=== PATIENT | female | born 1955 | race Caucasian/White ===

== ENCOUNTER 2020-04-22 02:04 | Outpatient (CLI) | payer MEDICARE, MEDICAID, SELFPAY ==
[2020-04-22 12:09] LABS: Abs Immature Grans 0.02 10^3/uL (0.0-0.06); Absolute Basophil Count 0.05 10^3/uL (0.0-0.2); Absolute Eosinophil Count 0.09 10^3/uL (0.0-0.7); Absolute Lymphocyte Count 2.16 10^3/uL (1.2-3.4); Absolute Monocyte Count 0.56 10^3/uL (0.1-0.8); Absolute Neutrophil Count 4.38 10^3/uL (1.2-6.7); Basophils % 0.7; Eosinophils % 1.2; HCT 41.3 % (36.0-46.0); HGB 13.6 g/dL (11.2-15.7); Immature Grans % 0.3; Lymphocytes % 29.8; MCH 26.4 pg (27.0-33.0); MCHC 32.9 % (32.0-36.0); MCV 80.2 fL (80-95); MPV 9.1 fL (8.0-11.0); Monocytes % 7.7; Neutrophils % 60.3; Nucleated RBC 0 %; Platelet Count 260 10^3/uL (130-400); RBC 5.15 10^6/uL (3.93-5.22); RDW 13.7 % (11.7-14.6); RDW-SD 39.3 fL; WBC 7.26 10^3/uL (4.4-10.8)
[2020-04-22 12:23] LABS: ALT 25 U/L (14-59); AST 14 U/L (15-37); Albumin 3.8 g/dL (3.4-5.0); Alkaline Phosphatase 103 U/L (46-116); Anion Gap 11.9 mmol/L (3-11); BUN 11 mg/dL (7-18); Bilirubin, Total 0.4 mg/dL (0.2-1.0); CO2 25.1 mmol/L (21.0-32.0); CREATININE 0.82 mg/dL (0.55-1.02); Chloride 103 mmol/L (98-107); Glucose 113 mg/dL (74-106); Potassium 3.1 mmol/L (3.5-5.1); Sodium 140 mmol/L (136-145); Total Protein 7.7 g/dL (6.4-8.2)
== END 2020-04-22 02:24 ==
PROVIDERS: Visit Provider Internal Medicine
DX: C51.9 Malignant neoplasm of vulva, unspecified (principal)
CPT/HCPCS: 36415; 80053; 83735; 85025

== ENCOUNTER 2020-04-30 07:35 | Outpatient (RCR) | payer MEDICARE, MEDICAID, SELFPAY ==
[2020-04-30 10:03] LABS: Abs Immature Grans 0.04 10^3/uL (0.0-0.06); Absolute Basophil Count 0.05 10^3/uL (0.0-0.2); Absolute Eosinophil Count 0.04 10^3/uL (0.0-0.7); Absolute Lymphocyte Count 1.03 10^3/uL (1.2-3.4); Absolute Neutrophil Count 5.15 10^3/uL (1.2-6.7); Basophils % 0.7; Eosinophils % 0.6; HCT 44.1 % (36.0-46.0); HGB 14.7 g/dL (11.2-15.7); Immature Grans % 0.6; Lymphocytes % 15.4; MCH 26.6 pg (27.0-33.0); MCHC 33.3 % (32.0-36.0); MCV 79.7 fL (80-95); Neutrophils % 76.7; Nucleated RBC 0 %; RBC 5.53 10^6/uL (3.93-5.22); RDW 13.8 % (11.7-14.6); RDW-SD 40.3 fL
[2020-04-30] MEDS: Normal Saline Flush 10 ML SYR IVP (10:05)
[2020-04-30 10:19] LABS: WBC 6.71 10^3/uL (4.4-10.8)
[2020-04-30 10:48] LABS: ALT 33 U/L (14-59); AST 17 U/L (15-37); Albumin 3.9 g/dL (3.4-5.0); Alkaline Phosphatase 115 U/L (46-116); Anion Gap 8.2 mmol/L (3-11); BUN 17 mg/dL (7-18); Bilirubin, Total 0.3 mg/dL (0.2-1.0); CO2 22.8 mmol/L (21.0-32.0); CREATININE 0.73 mg/dL (0.55-1.02); Calcium 9.5 mg/dL (8.5-10.1); Chloride 104 mmol/L (98-107); Glucose 116 mg/dL (74-106); Potassium 4.2 mmol/L (3.5-5.1); Sodium 135 mmol/L (136-145); Total Protein 7.9 g/dL (6.4-8.2)
== END 2020-05-06 23:59 | disposition home or self-care (01) ==
LOC: INF 07:35
PROVIDERS: Visit Provider Internal Medicine
DX: C51.9 Malignant neoplasm of vulva, unspecified (principal)
CPT/HCPCS: 36415; 80053; 83735; 85025

== ENCOUNTER 2020-05-07 08:58 | Outpatient (CLI) | payer MEDICARE, MEDICAID, SELFPAY ==
[2020-05-07 09:34] LABS: Abs Immature Grans 0.02 10^3/uL (0.0-0.06); Absolute Basophil Count 0.02 10^3/uL (0.0-0.2); Absolute Eosinophil Count 0.06 10^3/uL (0.0-0.7); Absolute Lymphocyte Count 0.85 10^3/uL (1.2-3.4); Absolute Monocyte Count 0.38 10^3/uL (0.1-0.8); Absolute Neutrophil Count 5.33 10^3/uL (1.2-6.7); Basophils % 0.3; Eosinophils % 0.9; HCT 41.1 % (36.0-46.0); Immature Grans % 0.3; Lymphocytes % 12.8; MCH 26.8 pg (27.0-33.0); MCHC 34.1 % (32.0-36.0); MCV 78.6 fL (80-95); MPV 8.7 fL (8.0-11.0); Monocytes % 5.7; Nucleated RBC 0 %; Platelet Count 194 10^3/uL (130-400); RBC 5.23 10^6/uL (3.93-5.22); RDW 14.1 % (11.7-14.6); WBC 6.66 10^3/uL (4.4-10.8)
[2020-05-07 09:45] LABS: ALT 27 U/L (14-59); AST 13 U/L (15-37); Albumin 3.6 g/dL (3.4-5.0); Alkaline Phosphatase 118 U/L (46-116); Anion Gap 12.7 mmol/L (3-11); BUN 15 mg/dL (7-18); Bilirubin, Total 0.2 mg/dL (0.2-1.0); CO2 23.3 mmol/L (21.0-32.0); CREATININE 0.76 mg/dL (0.55-1.02); Calcium 9.1 mg/dL (8.5-10.1); Chloride 100 mmol/L (98-107); Glucose 131 mg/dL (74-106); Magnesium 1.5 mg/dL (1.8-2.4); Potassium 3.7 mmol/L (3.5-5.1); Sodium 136 mmol/L (136-145); Total Protein 7.5 g/dL (6.4-8.2)
== END 2020-05-07 09:18 ==
PROVIDERS: Visit Provider Internal Medicine
DX: C51.9 Malignant neoplasm of vulva, unspecified (principal)
CPT/HCPCS: 36415; 80053; 83735; 85025

== ENCOUNTER 2020-05-14 08:39 | Outpatient (CLI) | payer MEDICARE, MEDICAID, SELFPAY ==
[2020-05-14 09:05] LABS: Abs Immature Grans 0.02 10^3/uL (0.0-0.06); Absolute Basophil Count 0.02 10^3/uL (0.0-0.2); Absolute Eosinophil Count 0.06 10^3/uL (0.0-0.7); Absolute Lymphocyte Count 0.64 10^3/uL (1.2-3.4); Absolute Neutrophil Count 2.59 10^3/uL (1.2-6.7); Basophils % 0.6; Eosinophils % 1.7; HCT 37.2 % (36.0-46.0); HGB 12.5 g/dL (11.2-15.7); Immature Grans % 0.6; Lymphocytes % 18.1; MCH 26.8 pg (27.0-33.0); MCHC 33.6 % (32.0-36.0); MCV 79.8 fL (80-95); MPV 8.6 fL (8.0-11.0); Monocytes % 5.7; Neutrophils % 73.3; Nucleated RBC 0 %; Platelet Count 151 10^3/uL (130-400); RBC 4.66 10^6/uL (3.93-5.22); RDW 14.8 % (11.7-14.6); RDW-SD 40.2 fL; WBC 3.53 10^3/uL (4.4-10.8)
[2020-05-14 09:16] LABS: ALT 28 U/L (14-59); AST 14 U/L (15-37); Albumin 3.5 g/dL (3.4-5.0); Alkaline Phosphatase 113 U/L (46-116); Anion Gap 9.8 mmol/L (3-11); BUN 12 mg/dL (7-18); Bilirubin, Total 0.3 mg/dL (0.2-1.0); CO2 24.2 mmol/L (21.0-32.0); CREATININE 0.85 mg/dL (0.55-1.02); Calcium 8.8 mg/dL (8.5-10.1); Chloride 102 mmol/L (98-107); Glucose 150 mg/dL (74-106); Magnesium 1.5 mg/dL (1.8-2.4); Potassium 3.2 mmol/L (3.5-5.1); Sodium 136 mmol/L (136-145)
== END 2020-05-14 08:59 ==
PROVIDERS: Visit Provider Internal Medicine
DX: C51.9 Malignant neoplasm of vulva, unspecified (principal)
CPT/HCPCS: 36415; 80053; 83735; 85025

== ENCOUNTER 2020-05-21 03:34 | Outpatient (CLI) | payer MEDICARE, MEDICAID, SELFPAY ==
[2020-05-21 08:43] LABS: Abs Immature Grans 0.01 10^3/uL (0.0-0.06); Absolute Basophil Count 0.02 10^3/uL (0.0-0.2); Absolute Eosinophil Count 0.03 10^3/uL (0.0-0.7); Absolute Lymphocyte Count 0.47 10^3/uL (1.2-3.4); Absolute Monocyte Count 0.22 10^3/uL (0.1-0.8); Absolute Neutrophil Count 2.51 10^3/uL (1.2-6.7); Basophils % 0.6; Eosinophils % 0.9; HCT 36.7 % (36.0-46.0); HGB 12.6 g/dL (11.2-15.7); Immature Grans % 0.3; Lymphocytes % 14.4; MCH 27.2 pg (27.0-33.0); MCHC 34.3 % (32.0-36.0); MCV 79.3 fL (80-95); MPV 8.7 fL (8.0-11.0); Monocytes % 6.7; Neutrophils % 77.1; Nucleated RBC 0 %; Platelet Count 150 10^3/uL (130-400); RBC 4.63 10^6/uL (3.93-5.22); RDW 15.9 % (11.7-14.6); RDW-SD 40.6 fL; WBC 3.26 10^3/uL (4.4-10.8)
[2020-05-21 09:00] LABS: ALT 25 U/L (14-59); AST 12 U/L (15-37); Albumin 3.7 g/dL (3.4-5.0); Alkaline Phosphatase 120 U/L (46-116); Anion Gap 12.1 mmol/L (3-11); BUN 10 mg/dL (7-18); Bilirubin, Total 0.4 mg/dL (0.2-1.0); CO2 22.9 mmol/L (21.0-32.0); CREATININE 0.85 mg/dL (0.55-1.02); Calcium 8.9 mg/dL (8.5-10.1); Chloride 97 mmol/L (98-107); Glucose 157 mg/dL (74-106); Magnesium 1.6 mg/dL (1.8-2.4); Sodium 132 mmol/L (136-145); Total Protein 7.4 g/dL (6.4-8.2)
== END 2020-05-21 03:54 ==
PROVIDERS: Visit Provider Internal Medicine
DX: C51.9 Malignant neoplasm of vulva, unspecified (principal)
CPT/HCPCS: 36415; 80053; 83735; 85025

== ENCOUNTER 2020-05-28 01:39 | Outpatient (CLI) | payer MEDICARE, MEDICAID, SELFPAY ==
[2020-05-28 08:49] LABS: Abs Immature Grans 0.01 10^3/uL (0.0-0.06); Absolute Eosinophil Count 0.01 10^3/uL (0.0-0.7); Absolute Neutrophil Count 2.39 10^3/uL (1.2-6.7); Eosinophils % 0.3; HCT 33.3 % (36.0-46.0); HGB 11.3 g/dL (11.2-15.7); Immature Grans % 0.3; MCH 27.3 pg (27.0-33.0); MCHC 33.9 % (32.0-36.0); MCV 80.4 fL (80-95); MPV 9.6 fL (8.0-11.0); Neutrophils % 79.4; Nucleated RBC 0 %; Platelet Count 158 10^3/uL (130-400); RBC 4.14 10^6/uL (3.93-5.22); RDW 16.9 % (11.7-14.6); RDW-SD 43.6 fL; WBC 3.01 10^3/uL (4.4-10.8)
[2020-05-28 09:07] LABS: ALT 23 U/L (14-59); AST 14 U/L (15-37); Albumin 3.3 g/dL (3.4-5.0); Alkaline Phosphatase 116 U/L (46-116); Anion Gap 10.2 mmol/L (3-11); BUN 10 mg/dL (7-18); Bilirubin, Total 0.5 mg/dL (0.2-1.0); CO2 23.8 mmol/L (21.0-32.0); CREATININE 0.86 mg/dL (0.55-1.02); Calcium 8.9 mg/dL (8.5-10.1); Chloride 97 mmol/L (98-107); Glucose 150 mg/dL (74-106); Magnesium 1.7 mg/dL (1.8-2.4); Sodium 131 mmol/L (136-145); Total Protein 7.3 g/dL (6.4-8.2)
== END 2020-05-28 01:59 ==
PROVIDERS: Visit Provider Internal Medicine
DX: C51.9 Malignant neoplasm of vulva, unspecified (principal)
CPT/HCPCS: 36415; 80053; 83735; 85025

== ENCOUNTER 2020-06-03 12:44 | Outpatient (CLI) | payer MEDICARE, MEDICAID, SELFPAY ==
[2020-06-03 13:36] LABS: Abs Immature Grans 0.02 10^3/uL (0.0-0.06); Absolute Basophil Count 0.01 10^3/uL (0.0-0.2); Absolute Eosinophil Count 0.01 10^3/uL (0.0-0.7); Absolute Lymphocyte Count 0.23 10^3/uL (1.2-3.4); Absolute Monocyte Count 0.37 10^3/uL (0.1-0.8); Basophils % 0.4; Eosinophils % 0.4; HCT 26.8 % (36.0-46.0); HGB 9.3 g/dL (11.2-15.7); Immature Grans % 0.7; Lymphocytes % 8.1; MCH 27.3 pg (27.0-33.0); MCHC 34.7 % (32.0-36.0); MCV 78.6 fL (80-95); MPV 9.1 fL (8.0-11.0); Neutrophils % 77.4; Nucleated RBC 0 %; Platelet Count 137 10^3/uL (130-400); RBC 3.41 10^6/uL (3.93-5.22); RDW 17.6 % (11.7-14.6); WBC 2.84 10^3/uL (4.4-10.8)
[2020-06-03 13:56] LABS: ALT 18 U/L (14-59); AST 15 U/L (15-37); Albumin 2.9 g/dL (3.4-5.0); Alkaline Phosphatase 91 U/L (46-116); Anion Gap 11.3 mmol/L (3-11); BUN 9 mg/dL (7-18); Bilirubin, Total 0.6 mg/dL (0.2-1.0); CO2 22.7 mmol/L (21.0-32.0); CREATININE 0.79 mg/dL (0.55-1.02); Calcium 8.6 mg/dL (8.5-10.1); Chloride 90 mmol/L (98-107); Glucose 119 mg/dL (74-106); Magnesium 1.4 mg/dL (1.8-2.4)
[2020-06-03 14:01] LABS: Sodium 124 mmol/L (136-145)
== END 2020-06-03 13:04 ==
PROVIDERS: Visit Provider Internal Medicine
DX: C51.9 Malignant neoplasm of vulva, unspecified (principal)
CPT/HCPCS: 36415; 80053; 83735; 85025

== ENCOUNTER 2020-06-04 01:56 | Outpatient (RCR) | payer MEDICARE, MEDICAID, SELFPAY | END 2020-06-05 23:59 | disposition home or self-care (01) | LOC: INF 01:56 | PROVIDERS: Visit Provider Internal Medicine | DX: Z53.9 Procedure and treatment not carried out, unspecified reason (principal) ==

== ENCOUNTER 2020-06-04 02:43 | Outpatient (CLI) | payer MEDICARE, MEDICAID, SELFPAY ==
[2020-06-04 09:54] LABS: Sodium, Urine 30 mmol/L
[2020-06-04 09:58] LABS: Uric Acid 5.1 mg/dL (2.6-6.0)
[2020-06-04 16:21] LABS: Osmolality Serum 267 mOsm/kg (275-295)
[2020-06-04 17:33] LABS: Bilirubin Negative (Negative); Blood Trace-lysed (Negative); Clarity Clear (Clear); Glucose Negative (Negative); Ketones Negative (Negative); Leukocyte Esterase Small (Negative); Nitrite Negative (Negative); Urobilinogen 0.2 EU/dL (Up TO 0.2); pH 5.5 (5-8)
[2020-06-04 17:39] LABS: Bacteria Rare HPF (Negative); C & S Indicated? No; Casts Negative LPF (Negative); Crystals Negative HPF (Negative); Epithelial Cells Negative HPF (Negative); Mucus Negative (Negative); RBC 0-2 HPF (0-2)
== END 2020-06-04 03:03 ==
PROVIDERS: Nurse Practitioner Adult Health; Radiology Radiation Oncology; Visit Provider Internal Medicine
DX: R39.15 Urgency of urination (principal)
CPT/HCPCS: 36415; 81003; 81015; 83930; 84300; 84550

== ENCOUNTER 2020-06-06 04:29 | Outpatient (CLI) | payer MEDICARE, MEDICAID, SELFPAY ==
[2020-06-06 11:43] LABS: Abs Immature Grans 0.01 10^3/uL (0.0-0.06); Absolute Eosinophil Count 0.01 10^3/uL (0.0-0.7); Absolute Lymphocyte Count 0.16 10^3/uL (1.2-3.4); Absolute Monocyte Count 0.31 10^3/uL (0.1-0.8); Absolute Neutrophil Count 1.79 10^3/uL (1.2-6.7); Eosinophils % 0.4; HCT 23.8 % (36.0-46.0); HGB 8.2 g/dL (11.2-15.7); Immature Grans % 0.4; MCH 27.5 pg (27.0-33.0); MCHC 34.5 % (32.0-36.0); MCV 79.9 fL (80-95); MPV 9.3 fL (8.0-11.0); Monocytes % 13.6; Neutrophils % 78.6; Nucleated RBC 0 %; Platelet Count 148 10^3/uL (130-400); RBC 2.98 10^6/uL (3.93-5.22); RDW 18.2 % (11.7-14.6); RDW-SD 51.5 fL; WBC 2.28 10^3/uL (4.4-10.8)
[2020-06-06 12:00] LABS: ALT 19 U/L (14-59); AST 16 U/L (15-37); Albumin 2.6 g/dL (3.4-5.0); Alkaline Phosphatase 80 U/L (46-116); Anion Gap 9.1 mmol/L (3-11); BUN 8 mg/dL (7-18); Bilirubin, Total 0.5 mg/dL (0.2-1.0); CO2 25.9 mmol/L (21.0-32.0); CREATININE 0.83 mg/dL (0.55-1.02); Calcium 8.6 mg/dL (8.5-10.1); Chloride 95 mmol/L (98-107); Glucose 154 mg/dL (74-106); Magnesium 1.5 mg/dL (1.8-2.4); Potassium 3.3 mmol/L (3.5-5.1); Sodium 130 mmol/L (136-145); Total Protein 6.7 g/dL (6.4-8.2)
[2020-06-06 12:02] LABS: Anisocytosis 1+; Diff Comment RBC Morph Reviewed
== END 2020-06-06 04:49 ==
PROVIDERS: Visit Provider Internal Medicine
DX: C51.9 Malignant neoplasm of vulva, unspecified (principal)
CPT/HCPCS: 80053; 83735; 85025

== ENCOUNTER 2020-06-11 01:21 | Outpatient (CLI) | payer MEDICARE, MEDICAID, SELFPAY ==
[2020-06-11 12:30] LABS: Abs Immature Grans 0.04 10^3/uL (0.0-0.06); Absolute Basophil Count 0.01 10^3/uL (0.0-0.2); Absolute Eosinophil Count 0.01 10^3/uL (0.0-0.7); Absolute Lymphocyte Count 0.37 10^3/uL (1.2-3.4); Absolute Monocyte Count 0.41 10^3/uL (0.1-0.8); Basophils % 0.2; Eosinophils % 0.2; HCT 27.4 % (36.0-46.0); HGB 9.1 g/dL (11.2-15.7); Immature Grans % 0.9; MCH 27.4 pg (27.0-33.0); MCHC 33.2 % (32.0-36.0); MCV 82.5 fL (80-95); MPV 8.6 fL (8.0-11.0); Monocytes % 8.8; Neutrophils % 81.9; Nucleated RBC 0 %; Platelet Count 201 10^3/uL (130-400); RBC 3.32 10^6/uL (3.93-5.22); RDW-SD 55.9 fL; WBC 4.64 10^3/uL (4.4-10.8)
[2020-06-11 12:46] LABS: ALT 31 U/L (14-59); AST 22 U/L (15-37); Albumin 2.7 g/dL (3.4-5.0); Alkaline Phosphatase 89 U/L (46-116); Anion Gap 10.1 mmol/L (3-11); BUN 6 mg/dL (7-18); Bilirubin, Total 0.6 mg/dL (0.2-1.0); CO2 26.9 mmol/L (21.0-32.0); CREATININE 0.86 mg/dL (0.55-1.02); Calcium 8.9 mg/dL (8.5-10.1); Chloride 92 mmol/L (98-107); Glucose 123 mg/dL (74-106); Magnesium 1.7 mg/dL (1.8-2.4); Potassium 3.4 mmol/L (3.5-5.1); Sodium 129 mmol/L (136-145); Total Protein 7.4 g/dL (6.4-8.2)
[2020-06-11 12:54] LABS: Sodium, Urine 18 mmol/L
== END 2020-06-11 01:41 ==
PROVIDERS: Visit Provider Internal Medicine
DX: C51.9 Malignant neoplasm of vulva, unspecified (principal); E87.1 Hypo-osmolality and hyponatremia
CPT/HCPCS: 36415; 80053; 83735; 84300; 85025

== ENCOUNTER 2020-06-18 01:58 | Outpatient (CLI) | payer MEDICARE, MEDICAID, SELFPAY ==
[2020-06-18 09:20] LABS: Abs Immature Grans 0.14 10^3/uL (0.0-0.06); Absolute Basophil Count 0.02 10^3/uL (0.0-0.2); Absolute Eosinophil Count 0.02 10^3/uL (0.0-0.7); Absolute Lymphocyte Count 0.71 10^3/uL (1.2-3.4); Absolute Monocyte Count 0.45 10^3/uL (0.1-0.8); Absolute Neutrophil Count 3.76 10^3/uL (1.2-6.7); Basophils % 0.4; Eosinophils % 0.4; HGB 9.3 g/dL (11.2-15.7); Immature Grans % 2.7; Lymphocytes % 13.9; MCH 27.6 pg (27.0-33.0); MCHC 33.2 % (32.0-36.0); MCV 83.1 fL (80-95); MPV 9.6 fL (8.0-11.0); Monocytes % 8.8; Neutrophils % 73.8; Nucleated RBC 0 %; Platelet Count 227 10^3/uL (130-400); RBC 3.37 10^6/uL (3.93-5.22); RDW-SD 58.2 fL
[2020-06-18 09:35] LABS: ALT 25 U/L (14-59); AST 20 U/L (15-37); Albumin 2.8 g/dL (3.4-5.0); Alkaline Phosphatase 96 U/L (46-116); Anion Gap 10.4 mmol/L (3-11); BUN 6 mg/dL (7-18); Bilirubin, Total 0.6 mg/dL (0.2-1.0); CO2 25.6 mmol/L (21.0-32.0); CREATININE 0.91 mg/dL (0.55-1.02); Chloride 97 mmol/L (98-107); Glucose 128 mg/dL (74-106); Potassium 4.1 mmol/L (3.5-5.1); Sodium 133 mmol/L (136-145); Total Protein 7.4 g/dL (6.4-8.2)
[2020-06-18 09:50] LABS: Sodium, Urine 34 mmol/L
== END 2020-06-18 02:18 ==
PROVIDERS: Visit Provider Internal Medicine
DX: E87.1 Hypo-osmolality and hyponatremia (principal)
CPT/HCPCS: 36415; 80053; 83735; 84300; 85025

== ENCOUNTER 2020-07-01 18:25 | Outpatient (REF) | payer MEDICARE, MEDICAID, SELFPAY ==
[2020-07-01 18:47] LABS: Bilirubin Negative (Negative); Blood Negative (Negative); Clarity Clear (Clear); Glucose Negative (Negative); Ketones Negative (Negative); Leukocyte Esterase Trace (Negative); Nitrite Negative (Negative); pH 5.5 (5-8)
[2020-07-01 18:55] LABS: Bacteria Few HPF (Negative); C & S Indicated? Yes; Casts Negative LPF (Negative); Crystals Negative HPF (Negative); Epithelial Cells Few HPF (Negative); Mucus Negative (Negative); RBC 0-2 HPF (0-2)
== END 2020-07-01 18:45 ==
LOC: LBN 18:25
PROVIDERS: Visit Provider Radiology Radiation Oncology
DX: R30.0 Dysuria (principal)
CPT/HCPCS: 81003; 81015; 87086

== ENCOUNTER 2020-12-23 16:05 | Outpatient (REF) | payer MEDICARE, MEDICAID, SELFPAY ==
[2020-12-23 16:25] LABS: Bilirubin Negative (Negative); Blood Moderate (Negative); Clarity Clear (Clear); Glucose Negative (Negative); Ketones Negative (Negative); Leukocyte Esterase Trace (Negative); Nitrite Negative (Negative); Urobilinogen 0.2 EU/dL (Up TO 0.2); pH 5.5 (5-8)
[2020-12-23 16:43] LABS: Bacteria Moderate HPF (Negative); C & S Indicated? Yes; Casts Negative LPF (Negative); Crystals Negative HPF (Negative); Epithelial Cells Few HPF (Negative); Mucus Negative (Negative)
== END 2020-12-23 16:06 | disposition home or self-care (01) ==
LOC: LBN 16:05
PROVIDERS: Visit Provider Radiology Radiation Oncology
DX: R30.0 Dysuria (principal)
CPT/HCPCS: 81003; 81015; 87086

== ENCOUNTER 2020-12-30 04:26 | Outpatient (CLI) | payer MEDICARE, MEDICAID, SELFPAY ==
[2020-12-30 12:38] LABS: Abs Immature Grans 0.01 10^3/uL (0.0-0.06); Absolute Basophil Count 0.03 10^3/uL (0.0-0.2); Absolute Eosinophil Count 0.05 10^3/uL (0.0-0.7); Absolute Lymphocyte Count 0.92 10^3/uL (1.2-3.4); Absolute Monocyte Count 0.32 10^3/uL (0.1-0.8); Absolute Neutrophil Count 3.51 10^3/uL (1.2-6.7); Basophils % 0.6; HCT 36.1 % (36.0-46.0); HGB 11.7 g/dL (11.2-15.7); Immature Grans % 0.2; MCH 26.8 pg (27.0-33.0); MCHC 32.4 % (32.0-36.0); MCV 82.8 fL (80-95); MPV 8.5 fL (8.0-11.0); Monocytes % 6.6; Neutrophils % 72.6; Nucleated RBC 0 %; Platelet Count 240 10^3/uL (130-400); RBC 4.36 10^6/uL (3.93-5.22); RDW 15.5 % (11.7-14.6); RDW-SD 47.4 fL; WBC 4.84 10^3/uL (4.4-10.8)
[2020-12-30 13:56] LABS: ALT 21 U/L (14-59); AST 13 U/L (15-37); Albumin 3.5 g/dL (3.4-5.0); Alkaline Phosphatase 130 U/L (46-116); Anion Gap 8.2 mmol/L (3-11); BUN 12 mg/dL (7-18); Bilirubin, Total 0.2 mg/dL (0.2-1.0); CO2 29.8 mmol/L (21.0-32.0); CREATININE 0.7 mg/dL (0.55-1.02); Calcium 8.6 mg/dL (8.5-10.1); Chloride 106 mmol/L (98-107); Glucose 76 mg/dL (74-106); Potassium 3.8 mmol/L (3.5-5.1); Sodium 144 mmol/L (136-145)
== END 2020-12-30 04:27 | disposition home or self-care (01) ==
PROVIDERS: PCP Physician Assistant Medical; Visit Provider Internal Medicine
DX: C51.9 Malignant neoplasm of vulva, unspecified (principal)
CPT/HCPCS: 36415; 80053; 83735; 85025

== ENCOUNTER 2021-05-20 02:14 | Outpatient (CLI) | payer MEDICARE, MEDICAID, SELFPAY ==
--- NOTE | 2021-05-20 | DI.CT_ITS ---
Exam(s) CT PELVIC W EXAM: CT PELVIC W CLINICAL HISTORY: S/P CHEMO,RXT FOR VULVAR CA,PERSISTENT VULVOVAGINAL PAIN,Z92.3. TECHNIQUE: Imaging Protocol: Axial computed tomography images with coronal and sagittal reformatted images were created and reviewed. CONTRAST MATERIAL: Intravenous: Omnipaque 350 Contrast volume:100 cc Oral: yes / FINDINGS: Stable dilatation of left ureter. Bladder: Mild distention, no focal mass. Mild vulvar and vaginal hyperemia without evidence of focal mass or abscess. Some stranding in the fat of the mons pubis without focal abnormality, not changed from the previous exam. Uterus and ova walter unremarkable. Bowel: No obstruction or bowel wall thickening. Sigmoid diverticulosis. No evidence of diverticulit is. Peritoneal cavity: No ascites, collection or mesenteric inflammatory response. No bony abnormality. No adenopathy IMPRESSION: Mild hyperemia in the vulva and surrounding subcutaneous fat. No visible mass or abscess. Stable di latation of the left ureter. RADIATION DOSE DELIVERED: 578.28mGy.cm Total DLP DATA REPOSITORY: All CT scans at this facility are submitted to the National Radiology Data Registry (NRDR) Dose Index Registry (DIR) with the [employer] (ACR). RADIATION OPTIMIZATION: All CT scans at this facility use at least one of these dose optimization te chniques: automated exposure control; mA and/or kV adjustment per patient size (includes targeted exa ms where dose is matched to clinical indication); or iterative reconstruction.
[2021-05-20 08:31] LABS: CREATININE 0.9 mg/dL (0.55-1.02)
[2021-05-20] MEDS: Normal Saline Flush 10 ML SYR IVP (09:50)
[2021-05-20] MEDS: Omnipaque 350 MG/ML 100 ML BTL IJ (09:50)
== END 2021-05-20 02:34 ==
PROVIDERS: PCP Physician Assistant Medical; Visit Provider Radiology Radiation Oncology
DX: Z92.3 Personal history of irradiation (principal); R68.89 Other general symptoms and signs
CPT/HCPCS: 72193; 82565; J3490

== ENCOUNTER 2021-05-20 19:05 | Outpatient (REF) | payer MEDICARE, MEDICAID, SELFPAY ==
[2021-05-20 21:48] LABS: Bilirubin Negative (Negative); Blood Trace-lysed (Negative); Clarity Clear (Clear); Glucose Negative (Negative); Ketones Negative (Negative); Leukocyte Esterase Trace (Negative); Nitrite Negative (Negative); pH 6.5 (5-8)
[2021-05-20 22:02] LABS: Bacteria Few HPF (Negative); C & S Indicated? Yes; Casts Negative LPF (Negative); Crystals Negative HPF (Negative); Epithelial Cells Rare HPF (Negative); Mucus Negative (Negative)
== END 2021-05-20 19:06 | disposition home or self-care (01) ==
LOC: LBN 19:05
PROVIDERS: PCP Physician Assistant Medical; Visit Provider Radiology Radiation Oncology
DX: R30.0 Dysuria (principal)
CPT/HCPCS: 81003; 81015; 87086

== ENCOUNTER 2021-10-20 00:34 | Outpatient (CLI) | payer MEDICARE, MEDICAID, SELFPAY ==
--- NOTE | 2021-10-20 | DI.MRI_ITS ---
Exam(s) MR BRAIN WO/W EXAM: MR BRAIN WO/W CLINICAL HISTORY: VULVAR CA,C51.9,S/P CHEMO TECHNIQUE: Multiplanar multisequence MRI of the brain was performed. Both noninfused and contrast i nfused sequences were performed. IV Contrast injected was 13 cc Dotarem. COMPARISON: CT CT PELVIC W from 05/20/2021 FINDINGS: CEREBRAL PARENCHYMA: No evidence of intracranial hemorrhage, mass effect nor shift of midline structu re. No extraaxial fluid collections. Ventricles are not enlarged nor shifted. There is no significant focal signal abnormality in the cerebellar hemispheres nor within the roc, m idbrain, and thalami. There are few small nonspecific foci of white matter signal abnormality, not associated with hemorrha ge, surrounding edema, nor enhancement. Also not associated with the restricted diffusion on DWI seq uence to suggest recent ischemic events. Also no evidence microhemorrhages on susceptibility weighte d imaging. There are no ring enhancing lesions in the brain. There is no abnormal meningeal enhancement. No obvious skull lesions. PITUITARY GLAND: No mass nor parasellar abnormality. No obvious abnormality in the cavernous sinuses. FLOW VOIDS: The expected flow void are noted. No evidence of obvious aneurysm nor obvious vascular ma lformation. PARANASAL SINUSES: The visualized paranasal sinuses appear unremarkable. ORBITS: No obvious abnormal findings. IMPRESSION: 1. No evidence of intracranial metastatic disease on this brain MRI study 2. No abnormal enhancing intracranial finding. 3. There are few nonspecific foci of white matter signal abnormality which do not have the appearanc e of metastatic disease nor acute lacunar infarcts. DATA REPOSITORY:
[2021-10-20 09:26] LABS: CREATININE 0.9 mg/dL (0.55-1.02)
[2021-10-20] MEDS: Normal Saline Flush 10 ML SYR IVP (09:32)
[2021-10-20] MEDS: Gadoterate meglumine 20 ML VIAL 13 ML IVP (09:32)
== END 2021-10-20 00:54 ==
PROVIDERS: PCP Physician Assistant Medical; Visit Provider Radiology Radiation Oncology
DX: Z01.812 Encounter for preprocedural laboratory examination (principal); C51.9 Malignant neoplasm of vulva, unspecified; Z92.21 Personal history of antineoplastic chemotherapy; Z12.89 Encounter for screening for malignant neoplasm of other sites; R90.82 White matter disease, unspecified; R42 Dizziness and giddiness
CPT/HCPCS: 70553; 82565

== ENCOUNTER → 2022-01-09 01:43 | Outpatient (CLI) | payer MEDICARE, MEDICAID, SELFPAY ==
--- NOTE | 2022-01-09 | DI.RAD_ITS ---
Exam(s) XR CHEST 2V PA LATERAL EXAM: XR CHEST 2V PA LATERAL CLINICAL HISTORY: HEAVY FEELING IN CHEST, S/P RADIOTHERAPY FOR VULVAR CA, Z92.3. TECHNIQUE: 2D digital imaging was performed. COMPARISON: No exams were available for comparison FINDINGS: 2 views: Heart size is normal. The mediastinum is not widened. Lungs are clear. No infiltrates nor pleural effusions. Evidence of previous rotator cuff repair surgery in the right shoulder noted IMPRESSION: No acute pulmonary findings. DATA REPOSITORY: RADIATION DOSE DELIVERED:
--- NOTE | 2022-01-09 11:00 | DI.CT_ITS ---
Exam(s) CT ABDOMEN PELVIS WO EXAM: CT ABDOMEN PELVIS WO CLINICAL HISTORY: INCREASING FLUID RETENTION, H/O CHEMO AND RADIOTHERAPY FOR VULVAR CA, Z92.3. TECHNIQUE: Imaging Protocol: Axial computed tomography images with coronal and sagittal reformatted images were created and reviewed CONTRAST MATERIAL: Intravenous: none Oral: Yes COMPARISON: CT CT PELVIC W from 05/20/2021 FINDINGS: VISUALIZED LUNG BASES: No nodules nor pleural effusions evident. ABDOMEN: There is no ascites. LIVER: There is a single 4 millimeter calcification in the right hepatic lobe. There are no discrete ominous focal hepatic lesions evident on this noninfused study. GALLBLADDER/BILIARY: No obvious gallbladder pathology. CBD is not dilated. PANCREAS: No evidence of pancreatic mass nor dilatation of the pancreatic duct. SPLEEN: Spleen is not enlarged. No obvious intrasplenic lesions. ADRENALS: There are no significant adrenal masses. KIDNEYS:There is moderate unilateral left hydronephrosis and hydroureter. The entire left ureter is dilated to diameter 9 millimeters, down to and including the left ureterovesical junction. There is no obvious radiopaque calculus in the lower ureter.. There is some uniform thickening of the bladder wall peer. ABDOMINAL AORTA: Mild fusiform dilatation maximum diameter 2.6 cm. Common iliac arteries are calcifi ed not enlarged. LYMPH NODES: There is no retroperitoneal nor paraaortic adenopathy. ABDOMINAL WALL: No evidence of anterior abdominal hernia. However, there is mild symmetrical subcuta neous streaking over both sides of the anterior abdominal wall in the supraumbilical region. There a lso appears to be some skin thickening. Possible cellulitis. Possibly related to prior radiation th erapy. GI: There is no evidence of bowel obstruction, free air, nor abscess. PELVIS: LYMPH NODES: There is no intrapelvic nor inguinal adenopathy. GI: No evidence of appendicitis.Sigmoid diverticulosis. No obvious acute diverticulitis. URINARY BLADDER: Diffusely thickened somewhat shaggy urinary bladder wall. Dilated left ureter as de scribed above. REPRODUCTIVE: Uterus and adnexal regions unremarkable. No free fluid in the pelvis OSSEOUS: No significant osseous lesions. Mild degenerative anterolisthesis L4 upon L5 due to facet arthropathy. No disc space narrowing evide nt at this level. IMPRESSION: 1. There is significant left-sided hydronephrosis and hydroureter. The entire length of the left ure ter is dilated down to the bladder wall. The bladder wall is uniformly thickened. 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 Urology consultation recommended. Similar findin gs are not seen in the opposite-right side. 2. Uterus and ovaries appear unremarkable 3. The amount of subcutaneous streaking in the region of the vulva has somewhat decreased but there i s increasing symmetrical streaking in the deep bilateral subcutaneous fat over both sides of the lowe r abdomen-pelvis. There is no drainable fluid collection at these levels. 4. There is no ascites. No bowel obstruction. No mesenteric masses RADIATION DOSE DELIVERED: 831.49mGy.cm Total DLP DATA REPOSITORY: All CT scans at this facility are submitted to the National Radiology Data Registry (NRDR) Dose Index Registry (DIR) with the [employer] (ACR). RADIATION OPTIMIZATION: All CT scans at this facility use at least one of these dose optimization te chniques: automated exposure control; mA and/or kV adjustment per patient size (includes targeted exa ms where dose is matched to clinical indication); or iterative reconstruction.
== END ==
PROVIDERS: PCP Physician Assistant Medical; Visit Provider Radiology Radiation Oncology
DX: N13.30 Unspecified hydronephrosis (principal); R93.89 Abnormal findings on diagnostic imaging of other specified body structures; Z92.3 Personal history of irradiation; Z85.44 Personal history of malignant neoplasm of other female genital organs; R60.0 Localized edema; R91.8 Other nonspecific abnormal finding of lung field
CPT/HCPCS: 71046; 74176; 82565

== ENCOUNTER 2022-11-16 02:06 | Outpatient (CLI) | payer MEDICARE, MEDICAID, SELFPAY ==
--- NOTE | 2022-11-16 13:45 | DI.MRI_ITS ---
Exam(s) MR LUMBAR SPINE WO EXAM: MR LUMBAR SPINE WO CLINICAL HISTORY: BILATERAL WEAK LEGS, SACRAL PAIN, R29.898. TECHNIQUE: Multiplanar multisequence MRI of the Lumbar spine was performed. CT CT ABDOMEN PELVIS WO from 01/09/2022 FINDINGS: Bones: The last intervertebral disc space is designated the L5/S1 level for the numbering purpose of this examination. The vertebral body heights are well maintained. Alignment is satisfactory. The si gnal characteristics are unremarkable. Cord: The conus tip ends at the L1 level. It is of normal size and signal intensity. T12-L1: No disc herniations or bulges are present. No central spinal canal or neural foraminal stenos is. L1-2: No disc herniations or bulges are present. No central spinal canal or neural foraminal stenosis . L2-3: No disc herniations or bulges are present. No central spinal canal or neural foraminal stenosis . L3-4: No disc herniations or bulges are present. No central spinal canal or neural foraminal stenosis . L4-5: There is a mild diffuse disc bulge. There are hypertrophic changes of the facets. There is ve ry mild narrowing of the central spinal canal. Mild bilateral neural foraminal narrowing is present. L5-S1: No disc herniations or bulges are present. No central spinal canal or neural foraminal stenosi s.Mild degenerative changes of the facets are seen. Soft tissues: The visualized SI joints and sacrum are well maintained. The paraspinal soft tissues ar e unremarkable. Visualized abdominal organs: There is unchanged left hydroureteronephrosis. IMPRESSION: 1. Degenerative changes in the lower lumbar spine resulting in mild mild central and bilateral neural foraminal stenosis at L4-L5. 2. Unchanged left hydroureteronephrosis. DATA REPOSITORY:
== END 2022-11-16 02:26 ==
LOC: DI 02:07
PROVIDERS: PCP Physician Assistant Medical; Visit Provider Physician Assistant Medical
DX: R29.898 Other symptoms and signs involving the musculoskeletal system (principal); M53.3 Sacrococcygeal disorders, not elsewhere classified; M51.26 Other intervertebral disc displacement, lumbar region; M47.816 Spondylosis without myelopathy or radiculopathy, lumbar region
CPT/HCPCS: 72148

== ENCOUNTER 2023-01-20 01:56 | Outpatient (CLI) | payer MEDICARE, MEDICAID, SELFPAY ==
--- NOTE | 2023-01-20 | DI.CT_ITS ---
Exam(s) CT CHEST W EXAM: CT CHEST W CLINICAL HISTORY: INCREASING DYSPNEA,R06.00,CHEST FULLNESS,S/P CHEMO AND RT FOR VULVAR CA TECHNIQUE: Imaging Protocol: Axial computed tomography images with coronal and sagittal reformatted images were created and reviewed CONTRAST MATERIAL: Intravenous: Omnipaque 350 Contrast volume:70 ml. COMPARISON: CT CT CHEST ABDOMEN PELVI from 02/15/2020 CT,PT NM PET CT STANDARD SKULL BASE TO MID-THIGH from 06/20/[address] ABDOMEN PELVIS WO from 01/09/2022 CR XR CHEST 2V PA LATERAL from 01/09/2022 FINDINGS: Pulmonary parenchyma: No consolidation. 7 x 7 x 10 millimeter spiculated appearing nodule in the ant erior right upper lobe, increasing in size from the prior exam. Tracheobronchial tree: No bronchiectasis or mucous plugging. Mediastinum and Nanda: No dominant adenopathy or fluid collection. Pleura: No effusion or pneumothorax. Heart: The heart is not dilated. Mild coronary artery calcifications are seen. Aorta: Thoracic aorta non-dilated. Mild atherosclerotic changes. Upper abdomen: Left hydronephrosis noted, similar to prior. Bones: Degenerative changes. No comp ression fractures. No lytic or blastic lesions identified. Soft tissues: Unremarkable. IMPRESSION: Interval increase in size of previously noted nodule in the anterior right upper lobe now with a spic ulated appearance and measuring 7 x 7 x 10 millimeters compared with 5 millimeters on prior PET CT. Unexpected findings RADIATION DOSE DELIVERED: 549.26mGy.cm Total DLP DATA REPOSITORY: All CT scans at this facility are submitted to the National Radiology Data Registry (NRDR) Dose Index Registry (DIR) with the [employer] (ACR). RADIATION OPTIMIZATION: All CT scans at this facility use at least one of these dose optimization te chniques: automated exposure control; mA and/or kV adjustment per patient size (includes targeted exa ms where dose is matched to clinical indication); or iterative reconstruction.
[2023-01-20 14:02] LABS: CREATININE 0.8 mg/dL (0.55-1.02); Estimated GFR 80.21 (mL/min/1.73m2)
[2023-01-20] MEDS: Omnipaque 350 MG/ML 100 ML BTL IJ (14:31)
[2023-01-20] MEDS: Normal Saline - Diluent 50 ML VIAL IJ (14:32)
== END 2023-01-20 02:16 ==
LOC: DI 01:57
PROVIDERS: PCP Physician Assistant Medical; Visit Provider Radiology Radiation Oncology
DX: R59.0 Localized enlarged lymph nodes (principal); R10.9 Unspecified abdominal pain; R91.8 Other nonspecific abnormal finding of lung field; R06.00 Dyspnea, unspecified
CPT/HCPCS: 71260; 82565; J3490

== ENCOUNTER 2023-05-07 11:07 | Day surgery (SDC) | payer MEDICARE, MEDICAID, SELFPAY ==
[2023-05-07 11:24] VITALS: BP 169/68; PULSE 87; RESP 20; TEMP 36.4; O2SAT 98
--- NOTE | 2023-05-07 11:44 | W.ANESPRE ---
General Info Date of Service Date Performed: 05/07/23 Height: 5 ft Weight: 75.5 kg Body Mass Index (BMI): 32.5 Surgical Procedure: Operation Date: 05/07/23 12:55 Proposed Procedure Side Surgeon p Cataract Extraction with IOL Implant Left Stewart Thompson MD Meds Allergies and Home Medications Allergies Allergy/AdvReac Type Severity Reaction Status Date / Time animal dander Allergy Unknown Other (See Unverified 05/07/23 11:19 Comment) latex Allergy Unknown Edema Unverified 05/07/23 11:19 Penicillins Allergy Unknown Skin Rash Unverified 05/07/23 11:19 codeine AdvReac Unknown Nausea Unverified 05/07/23 11:19 Sulfa (Sulfonamide AdvReac Unknown Nausea Unverified 05/06/23 09:01 Antibiotics) Home Medication Medication Instructions Recorded acetaminophen 500 mg tablet 1,000 mg PO BID PRN 02/26/21 (Tylenol Extra Strength) hydrocortisone 2.5 % topical cream 1 applic topical BID 02/26/21 lorazepam 0.5 mg tablet 0.5 mg PO QID PRN 02/26/21 naloxone 4 mg/actuation nasal 1 spray intranasal Q2M 02/26/21 spray (Narcan) nicotine 21 mg/24 hr daily 1 patch transdermal DAILY 02/26/21 transdermal patch nystatin 100,000 unit/gram topical 1 applic topical DAILY 02/26/21 powder oxycodone 10 mg tablet 10 mg PO DIRECTED 02/26/21 polyethylene glycol 3350 17 17 g PO DAILY 02/26/21 gram/dose oral powder (Miralax) pantoprazole 40 mg tablet,delayed 40 mg PO DAILY 05/06/23 release vitamin E 1,000 unit tablet 1 tab PO DAILY 05/06/23 albuterol sulfate 90 mcg/actuation inhalation 05/07/23 aerosol inhaler (Ventolin HFA) Current Visit Medications: Current Medications Generic Name Dose Route Start Last Admin Trade Name Freq PRN Reason Stop Dose Admin Acetaminophen 1,000 mg 05/07/23 06:00 Acetaminophen 500 Mg Tab PO 06/06/23 05:59 Q4H PRN PRN Balanced Salt Solution 500 ml 05/07/23 06:00 Balanced Salt Soln.-Plus 500 Ml Bag OP 06/06/23 05:59 DIRECTED [facility] Miscellaneous Medication 0 ml 05/07/23 06:00 Prednisolone 1%, Moxifloxacin 0.5%, Nepafenac 0.1% 5ml Btl OS 06/06/23 05:59 DIRECTED [facility] Miscellaneous Medication 0 ml 05/07/23 06:00 Tropicam./Phenyleph. (1/2.5%) 5 Ml Btl OS 06/06/23 05:59 DIRECTED [facility] Tetracaine HCl 0 ml 05/07/23 06:00 Tetracaine 0.5% 4 Ml Btl OS 06/06/23 05:59 DIRECTED [facility] PFSH Medical History Medical History Abnormal electrocardiogram had [place] [facility] [place] stated everything came back normal and she was ok'd to proceed with cataract surgery Acid reflux Anxiety Blood in urine COPD (chronic obstructive pulmonary disease) Depressive disorder Dyspnea External hemorrhoids Hyperlipidemia Lesion of vulva Mass of urinary bladder Nicotine dependence Prediabetes Primary malignant neoplasm of urethra Sciatica Squamous cell carcinoma Surgical History Surgical History History of carpal tunnel release of both wrists History of cystoscopy History of shoulder surgery History of surgical procedure on mouth Hx of lymph node excision Tobacco Smoking/Tobacco Use Status: Current every day Tobacco Type: cigarettes Alcohol Alcohol Intake: never Substance Use Substance use: Never Substance use type: does not use Vital Signs and Lab Results Vital Signs Most Recent Vital Signs in EMR: Most Recent Vital Signs Temp Pulse Resp BP Pulse Ox 36.4 C L 87 20 169/68 H 98 05/07/23 11:24 05/07/23 11:24 05/07/23 11:24 05/07/23 11:24 05/07/23 11:24 Lab Results Blood Type / Crossmatch: No Data to Display Complete Blood Count: No Data to Display Complete Metabolic Panel: No Data to Display Liver Function Panel: No Data to Display Coagulation Panel: No Data to Display Cardiac Panel: No Data to Display Arterial Blood Gas: No Data to Display Venous Blood Gas: No Data to Display Pancreas Panel: No Data to Display Thyroid Panel: No Data to Display Infectious Disease: No Data to Display Blood Cultures: No Data to Display Toxicology Panel: No Data to Display Anesthesia Assessment and Plan Anesthesia History Personal History: No History of Anesthesia Complications Family History: No Family History of Anesthesia Complications Exercise Tolerance Exercise Tolerance: Metabolic Equivalents<4 Pertinent Negatives Pertinent Negatives: No Symptoms of GERD Cardiac & Pulmonary Exam Cardiac Exam: Normal S1/S2 Heart Sounds Pulmonary Exam: Rhonchi Present (COPD) Implantable Cardiac Device Does patient have a Pacemaker or an ICD?: No Airway Exam Known Difficult Airway: No Mallampati Class: 2 Mouth Opening: Normal (> 3cm) Thyromental Distance: Greater than 3 cm Neck Range of Motion: Full ROM Neck Circumference: Thick Teeth Condition: Normal Dentition ASA Classification ASA Score: ASA 3 Emergency Case?: No NPO Status NPO Status: NPO Clears >2 hours, Solids >8 hours Anesthesia Plan Resuscitation Status: Full Code Anesthesia Technique: MAC Anesthesia Airway Planned: Natural Airway Monitors Used: Standard Monitors
[2023-05-07 11:46] VITALS: BMI 32.5
[2023-05-07] MEDS: Tropicam./Phenyleph. (1/2.5%) 5 ML BTL OS ×3 (11:46→11:56)
[2023-05-07] MEDS: Balanced Salt Soln.-PLUS 500 ML BAG OP (12:37)
[2023-05-07] MEDS: Tetracaine 0.5% 4 ML BTL OS (12:38)
[2023-05-07] MEDS: Duovisc Viscoelastic System EACH 1 EACH (12:38)
[2023-05-07] MEDS: Lidocaine 1% Pres-Free 5 ML VIAL (12:39)
[2023-05-07] MEDS: Povidone-Iodine Ophth 30 ML BTL (12:40)
[2023-05-07] MEDS: Phenylephrine/Lidocaine (15/10) MG/ML 1 ML VIAL (12:40)
--- NOTE | 2023-05-07 13:00 | ROE_ITS ---
Date of service: 05/07/23 Time of Service: 13:01 Operative Note Operative Note DATE OF PROCEDURE: 05/07/23 PRE-OP DIAGNOSIS: Nuclear cataract, right eye POST-OP DIAGNOSIS: same PROCEDURE: Cataract extraction using phacoemulsification with intraocular lens implant, right eye SURGEON: Stewart Thompson ANESTHESIA TYPE: Local By Surgeon and MAC Refer to Anesthesia Record ESTIMATED BLOOD LOSS: 0 PATHOLOGY: none sent COMPLICATIONS: None Patient was transported to: same day Patient's condition: stable Implants: Isai Clareon [id number] Indications: Progressive decreased vision due to cataract, right eye Procedure Description: CATARACT SURGERY OPERATIVE REPORT PREOPERATIVE DIAGNOSIS: Nuclear cataract, right eye POSTOPERATIVE DIAGNOSIS: Same OPERATION: Cataract extraction using phacoemulsification with posterior chamber intraocular lens implant, right eye. IOL: IOL Validation Leader/Model: Isai Clareon [id number] IOL Power: + 20.5 diopters IOL Serial Number: [id number] Optic Diameter: 6.0mm Haptic/Overall Diameter: 13.0mm PHACO INFO: IsaiMedialetsurion Vision System with OZil and Active Fluidics Cumulative Dispersed Energy (CDE): 14.50 seconds SURGEON: Stewart Thompson MD, MICHAEL ANESTHESIA: Monitored Anesthesia Care (MAC), with local sub-tenon's anesthetic infiltration COMPLICATIONS: None SPECIMENS: None INDICATIONS FOR PROCEDURE: The patient is a 68-year-old lady with history of diminished visual acuity in her right eye secondary to the development of nuclear cataract. She is significantly symptomatic that she desires cataract surgery and attempt to improve and maximize her vision. See office notes for detailed information. PROCEDURE: The correct surgical eye was identified and marked as the right eye and the pupil was dilated in the preoperative area using mydriatics and cycloplegics. The dilated pupil size was 6.0 mm. Oral sedation was administered in the form of an Imprimis MKO Melt (midazolam 3mg/ketamine 25mg/ondansetron 2mg). The patient was brought to the operating room where cardiopulmonary monitoring was instituted and surgical time-out was performed, confirming the correct operative eye and IOL power. Topical anesthesia was administered and ophthalmic povidone-iodine 5% was instilled into the conjunctival fornices. The sirena-ocular area was prepped with Betadine 10% solution and draped in the usual sterile fashion for intraocular surgery, including an aperture drape. A Tegaderm transparent film dressing was cut in half and used to cover the lashes and lid margins. Care was taken to sequester the lashes and lid margins under the Tegaderm dressing. A lid speculum was placed between the lids of the operative eye and the Priyanka-Ez operating microscope was maneuvered into position. Wilmar scissors were then used to make a conjunctival buttonhole approximately 6mm posterior to the limbus in the inferonasal quadrant. Blunt dissection was carried out to expose bare sclera, and a blunt-tipped sub-tenon?s anesthesia cannula was introduced and passed posteriorly along the globe where non- preserved plain lidocaine was injected into posterior sub-Tenon?s space. A sideport knife was used to make a paracentesis port. Intraocular phenylephrine/lidocaine was injected into the anterior chamber. The anterior chamber was then filled with viscoelastic. A keratome knife was used to construct a two--plane clear corneal tunnel extending 2.0mm into clear cornea. A flap was raised on the anterior capsule and capsulorhexis forceps were used to complete a continuous curvilinear capsulorhexis of 5.0 mm. Balanced salt solution was then used to perform cortical cleaving hydrodissection and nuclear hydrodelineation until the lens could be freely rotated within the capsular bag. The lens nucleus was then disassembled and removed within the capsular bag and iris plane using phacoemulsification. Residual cortical material was removed using the I/A handpiece. The posterior capsule was carefully polished to remove as much residual lens epithelial cells as safely possible. The capsular bag was then inflated and the anterior chamber deepened with cohesive viscoelastic. The lens implant described above was inserted into the capsular bag using the Isai Autonome Injector. A Kuglen hook was used to dial the IOL into position. Residual viscoelastic was then removed first from posterior to the IOL, then from the anterior chamber using the I/A handpiece. The lens implant was noted to center nicely within the capsular bag. The incisions were stromally hydrated, and the anterior chamber was reformed using BSS. Then 0.5cc of moxifloxacin 1.0mg/ml were injected into the capsular bag and anterior chamber. The incisions were checked with a Weck spear and found to be secure. Several drops of ophthalmic povidone-iodine 5% were then applied to the eye followed by two drops of Imprimis combination prednisolone/moxifloxacin/nepafenac solution. The drapes were removed and a clear plastic protective eye shield was placed over the eye. The patient was then returned to Same Day Surgery in stable condition.
--- NOTE | 2023-05-07 13:00 | PDOC.DSDIS_ITS ---
Date of service: 05/07/23 Time of Service: 13:00 Discharge Plan Disposition Patient Disposition: Home Discharge Details Attending Provider: Stewart Thompson Primary Care Provider: Adela Madrid Home Meds and New Rx's Prescriptions: No Action acetaminophen [Tylenol Extra Strength] 500 mg Tablet 1,000 mg PO BID PRN lorazepam 0.5 mg Tablet 0.5 mg PO QID PRN nicotine 21 mg/24 hr Patch 24 Hour 1 patch TRANSDERMAL DAILY hydrocortisone 2.5 % Cream 1 applic TOPICAL BID nystatin 100,000 unit/gram Powder 1 applic TOPICAL DAILY polyethylene glycol 3350 [Miralax] 17 gram/dose Powder 17 g PO DAILY oxycodone 10 mg Tablet 10 mg PO DIRECTED naloxone [Narcan] 4 mg/actuation [place],Non-Aerosol 1 spray INTRANASAL Q2M pantoprazole 40 mg Tablet,Delayed Release (Dr/Ec) 40 mg PO DAILY vitamin E 1,000 unit Tablet 1 tab PO DAILY albuterol sulfate [Ventolin HFA] 90 mcg/actuation HFA aerosol inhaler INHALATION Patient Comments: INHALE 2 PUFFS BY MOUTH EVERY 4 TO 6 HOURS NEEDED FOR SHORTNESS OF BREATH Discharge Instructions Stand Alone Forms: Post-op Topical Cataract, Sonya Ramirez (DSU) Discharge Orders Discharge Orders: Discharge Order (Routine); Ordered 05/07/23 Ordered By: Stewart Thompson DS: Diagnosis Discharge Diagnosis (1) Nuclear age-related cataract, right eye: Status: Resolved
[2023-05-07 13:06] VITALS: BP 166/74; PULSE 78; RESP 20; TEMP 36.8; O2SAT 99
--- NOTE | 2023-05-07 13:12 | W.ANESPOSTOP ---
Postoperative Evaluation Date, Time and Location Date Performed: 05/07/23 Time Performed: 13:12 Patient Location: Day Surgery Unit Vital Signs Most Recent Imported Vital Signs: Most Recent Vital Signs Temp Pulse Resp BP Pulse Ox 36.8 C 78 20 166/74 H 99 05/07/23 13:06 05/07/23 13:06 05/07/23 13:06 05/07/23 13:06 05/07/23 13:06 Pain Score Most Recent Pain Score: Most Recent Pain Score Pain Level 0 05/07/23 13:06 Assessment Mental Status: Awake (Alert & Oriented to Patient Baseline) Airway and Respiratory Function: Patent airway with normal (patient baseline) respiratory exam Cardiovascular Function: Hemodynamically Stable Hydration Status: Adequately Hydrated Nausea & Vomiting: No Nausea or Vomiting Pain: Pt. Denies Any Pain Peripheral Nerve Block: Patient did not receive a nerve block
== END 2023-05-07 11:08 | disposition home or self-care (01) ==
LOC: SUR 11:08
PROVIDERS: PCP Physician Assistant Medical; Visit Provider Ophthalmology
PROC: (CPT 66984; principal; 2023-05-07 12:45)
DX: H25.11 Age-related nuclear cataract, right eye (principal)
CPT/HCPCS: 66984; V2632

== ENCOUNTER 2023-05-21 07:19 | Day surgery (SDC) | payer MEDICARE, MEDICAID, SELFPAY ==
--- NOTE | 2023-05-21 06:19 | ANES.PREOP_ITS ---
General Info Date of Service Date Performed: 05/21/23 Height: 5 ft Weight: 75.5 kg Body Mass Index (BMI): 32.5 Surgical Procedure: Operation Date: 05/21/23 09:10 Proposed Procedure Side Surgeon p Cataract Extraction with IOL Implant Left Stewart Thompson MD Meds Allergies and Home Medications Allergies Allergy/AdvReac Type Severity Reaction Status Date / Time animal dander Allergy Unknown Other (See Verified 05/21/23 07:30 Comment) latex Allergy Unknown Edema Verified 05/21/23 07:30 Penicillins Allergy Unknown Skin Rash Verified 05/21/23 07:30 codeine AdvReac Unknown Nausea Verified 05/21/23 07:30 Sulfa (Sulfonamide AdvReac Unknown Nausea Verified 05/21/23 07:30 Antibiotics) Home Medication Medication Instructions Recorded acetaminophen 500 mg tablet 1,000 mg PO BID PRN 02/26/21 (Tylenol Extra Strength) naloxone 4 mg/actuation nasal 1 spray intranasal Q2M 02/26/21 spray (Narcan) nicotine 21 mg/24 hr daily 1 patch transdermal DAILY 02/26/21 transdermal patch oxycodone 10 mg tablet 10 mg PO DIRECTED 02/26/21 pantoprazole 40 mg tablet,delayed 40 mg PO DAILY 05/06/23 release vitamin E 1,000 unit tablet 1 tab PO DAILY 05/06/23 Current Visit Medications: Current Medications Generic Name Dose Route Start Last Admin Trade Name Freq PRN Reason Stop Dose Admin Acetaminophen 1,000 mg 05/21/23 06:00 Acetaminophen 500 Mg Tab PO 06/20/23 05:59 Q4H PRN PRN Balanced Salt Solution 500 ml 05/21/23 06:00 Balanced Salt Soln.-Plus 500 Ml Bag OP 06/20/23 05:59 DIRECTED ARMANDO Miscellaneous Medication 0 ml 05/21/23 06:00 Prednisolone 1%, Moxifloxacin 0.5%, Nepafenac 0.1% 5ml Btl OS 06/20/23 05:59 DIRECTED ARMANDO Miscellaneous Medication 0 ml 05/21/23 06:00 Tropicam./Phenyleph. (1/2.5%) 5 Ml Btl OS 06/20/23 05:59 DIRECTED ARMANDO Tetracaine HCl 0 ml 05/21/23 06:00 Tetracaine 0.5% 4 Ml Btl OS 06/20/23 05:59 DIRECTED ARMANDO PFSH Active Problems Active Problems: Problem Status Onset Code Nuclear age-related cataract, left eye H25.12 Nuclear age-related cataract, right eye H25.11 Medical History Medical History Abnormal electrocardiogram [place] [facility] [place]. stated everything came back normal and she was ok'd to proceed with cataract surgery Acid reflux Anxiety Blood in urine COPD (chronic obstructive pulmonary disease) Depressive disorder Dyspnea External hemorrhoids Hyperlipidemia Lesion of vulva Mass of urinary bladder Nicotine dependence Prediabetes Primary malignant neoplasm of urethra Sciatica Squamous cell carcinoma Surgical History Surgical History History of carpal tunnel release of both wrists History of cystoscopy History of shoulder surgery History of surgical procedure on mouth Hx of lymph node excision Tobacco Smoking/Tobacco Use Status: Former Tobacco Use Alcohol Alcohol Intake: never Substance Use Substance use: Never Substance use type: does not use Vital Signs and Lab Results Vital Signs Most Recent Vital Signs in EMR: Temp Pulse Resp BP Pulse Ox 36.4 C L 80 20 132/68 97 05/21/23 07:34 05/21/23 07:34 05/21/23 07:34 05/21/23 07:34 05/21/23 07:34 Lab Results Blood Type / Crossmatch: No Data to Display Complete Blood Count: No Data to Display Complete Metabolic Panel: No Data to Display Liver Function Panel: No Data to Display Coagulation Panel: No Data to Display Cardiac Panel: No Data to Display Arterial Blood Gas: No Data to Display Venous Blood Gas: No Data to Display Pancreas Panel: No Data to Display Thyroid Panel: No Data to Display Infectious Disease: No Data to Display Blood Cultures: No Data to Display Toxicology Panel: No Data to Display Anesthesia Assessment and Plan Anesthesia History Personal History: No History of Anesthesia Complications Family History: No Family History of Anesthesia Complications Exercise Tolerance Exercise Tolerance: Metabolic Equivalents<4 Cardiac & Pulmonary Exam Cardiac Exam: Normal S1/S2 Heart Sounds Pulmonary Exam: Clear Bilateral Breath Sounds Implantable Cardiac Device Does patient have a Pacemaker or an ICD?: No Airway Exam Known Difficult Airway: No Mallampati Class: 2 Mouth Opening: Normal (> 3cm) Thyromental Distance: Greater than 3 cm Neck Range of Motion: Full ROM Neck Circumference: Thick Teeth Condition: Normal Dentition ASA Classification ASA Score: ASA 3 Emergency Case?: No NPO Status NPO Status: NPO Clears >2 hours, Solids >8 hours Anesthesia Plan Resuscitation Status: Full Code Anesthesia Technique: MAC Anesthesia Airway Planned: Natural Airway Monitors Used: Standard Monitors Preoperative Comments:: 68 yo female for repeat cataract. previous without MKO. Denies changes in health history. She is debating MKO vs no MKO. She would like to hold off at this point, but understands that she can change her mind and that we can place an IV if needed during the procedure.
[2023-05-21 07:34] VITALS: BP 132/68; PULSE 80; RESP 20; TEMP 36.4; O2SAT 97
[2023-05-21] MEDS: Tropicam./Phenyleph. (1/2.5%) 5 ML BTL OS ×3 (07:46→07:56)
[2023-05-21 07:54] VITALS: BMI 32.5
[2023-05-21] MEDS: Povidone-Iodine Ophth 30 ML BTL (08:49)
[2023-05-21] MEDS: Tetracaine 0.5% 4 ML BTL OS (08:49)
[2023-05-21] MEDS: Balanced Salt Soln.-PLUS 500 ML BAG OP (08:54)
[2023-05-21] MEDS: Lidocaine 1% Pres-Free 5 ML VIAL (08:55)
[2023-05-21] MEDS: Duovisc Viscoelastic System EACH 1 EACH (08:55)
[2023-05-21] MEDS: Phenylephrine/Lidocaine (15/10) MG/ML 1 ML VIAL (08:55)
[2023-05-21 09:14] VITALS: BP 120/70; PULSE 58; RESP 18; TEMP 36.5; O2SAT 98
--- NOTE | 2023-05-21 09:17 | ROE_ITS ---
Date of service: 05/21/23 Time of Service: 09:17 Operative Note Operative Note DATE OF PROCEDURE: 05/21/23 PRE-OP DIAGNOSIS: Nuclear cataract, left eye POST-OP DIAGNOSIS: same PROCEDURE: Cataract extraction using phacoemulsification with intraocular lens implant, left eye SURGEON: Stewart Thompson ANESTHESIA TYPE: Local By Surgeon and MAC Refer to Anesthesia Record PATHOLOGY: none sent COMPLICATIONS: None Patient was transported to: same day Patient's condition: stable Implants: Isai Clareon [id number] Indications: Progressive decreased vision due to cataract, left eye Procedure Description: CATARACT SURGERY OPERATIVE REPORT PREOPERATIVE DIAGNOSIS: Nuclear cataract, left eye POSTOPERATIVE DIAGNOSIS: Same OPERATION: Cataract extraction using phacoemulsification with posterior chamber intraocular lens implant, left eye. IOL: IOL Manager Intelligence/Model: Isai Clareon [id number] IOL Power: + 21.0 diopters IOL Serial Number: [id number] Optic Diameter: 6.0mm Haptic/Overall Diameter: 13.0mm PHACO INFO: Isai HIT Communityurion Vision System with OZil and Active Fluidics Cumulative Dispersed Energy (CDE): 9.07 seconds SURGEON: Stewart Thompson MD, MICHAEL ANESTHESIA: Monitored Anesthesia Care (MAC), with local sub-tenon's anesthetic infiltration COMPLICATIONS: None SPECIMENS: None INDICATIONS FOR PROCEDURE: The patient is a 68-year-old lady with history of diminished visual acuity in both eyes secondary to the development of bilateral nuclear cataract. She has already undergone cataract surgery in the right eye and is doing well postoperatively. She now presents for cataract surgery in the left eye. See office notes for detailed information. PROCEDURE: The correct surgical eye was identified and marked as the left eye and the pupil was dilated in the preoperative area using mydriatics and cycloplegics. The dilated pupil size was 5.5 mm. The patient elected to proceed without oral sedation. The patient was brought to the operating room where cardiopulmonary monitoring was instituted and surgical time-out was performed, confirming the correct operative eye and IOL power. Topical anesthesia was administered and ophthalmic povidone-iodine 5% was instilled into the conjunctival fornices. The sirena-ocular area was prepped with Betadine 10% solution and draped in the usual sterile fashion for intraocular surgery, including an aperture drape. A Tegaderm transparent film dressing was cut in half and used to cover the lashes and lid margins. Care was taken to sequester the lashes and lid margins under the Tegaderm dressing. A lid speculum was placed between the lids of the operative eye and the Isai LuxOR Revalia operating microscope was maneuvered into position. Wilmar scissors were then used to make a conjunctival buttonhole approximately 6mm posterior to the limbus in the inferonasal quadrant. Blunt dissection was carried out to expose bare sclera, and a blunt-tipped sub-tenon?s anesthesia cannula was introduced and passed posteriorly along the globe where non- preserved plain lidocaine was injected into posterior sub-Tenon?s space. A sideport knife was used to make a paracentesis port. Intraocular phenylephrine/lidocaine was injected into the anterior chamber. The anterior chamber was then filled with viscoelastic. A keratome knife was used construct a two-plane clear corneal tunnel extending 2.0mm into clear cornea. A flap was raised on the anterior capsule and capsulorhexis forceps were used to complete a continuous curvilinear capsulorhexis of 5.0 mm. Balanced salt solution was then used to perform cortical cleaving hydrodissection and nuclear hydrodelineation until the lens could be freely rotated within the capsular bag. The lens nucleus was then disassembled and removed within the capsular bag and iris plane using phacoemulsification. Residual cortical material was removed using the irrigation/aspiration handpiece. The posterior capsule was carefully polished to remove as much residual lens epithelial cells as safely possible. The capsular bag was then inflated and the anterior chamber deepened with viscoelastic. The lens implant described above was inserted into the capsular bag using the Isai Autonome Injector. A Kuglen hook was used to dial the IOL into position. Residual viscoelastic was then removed first from posterior to the IOL, then from the anterior chamber using the I/A handpiece. The lens implant was noted to center nicely within the capsular bag. The incisions were stromally hydrated, and the anterior chamber was reformed using BSS. Then 0.5cc of moxifloxacin 1.0mg/ml were injected into the capsular bag and anterior chamber. The incisions were checked with a Weck spear and found to be secure. Several drops of ophthalmic povidone-iodine 5% were then applied to the eye followed by two drops of Imprimis combination prednisolone/moxifloxacin/nepafenac solution. The drapes were removed and a clear plastic protective eye shield was placed over the eye. The patient was then returned to Same Day Surgery in stable condition.
--- NOTE | 2023-05-21 09:17 | W.PM.DSUDISC ---
Date of service: 05/21/23 Time of Service: 09:17 Discharge Plan Disposition Patient Disposition: Home Discharge Details Attending Provider: tSewart Thompson Primary Care Provider: Adela Madrid Home Meds and New Rx's Prescriptions: No Action acetaminophen [Tylenol Extra Strength] 500 mg Tablet 1,000 mg PO BID PRN nicotine 21 mg/24 hr Patch 24 Hour 1 patch TRANSDERMAL DAILY oxycodone 10 mg Tablet 10 mg PO DIRECTED naloxone [Narcan] 4 mg/actuation Rogers,Non-Aerosol 1 spray INTRANASAL Q2M pantoprazole 40 mg Tablet,Delayed Release (Dr/Ec) 40 mg PO DAILY vitamin E 1,000 unit Tablet 1 tab PO DAILY Discharge Instructions Stand Alone Forms: Post-op Topical Cataract, Sonya Ramirez (DSU) Discharge Orders Discharge Orders: Discharge Order (Routine); Ordered 05/21/23 Ordered By: Stewart Thompson DS: Diagnosis Discharge Diagnosis (1) Nuclear age-related cataract, left eye: Status: Resolved
--- NOTE | 2023-05-21 09:54 | W.ANESPOSTOP ---
Postoperative Evaluation Date, Time and Location Date Performed: 05/21/23 Time Performed: 09:14 Patient Location: Day Surgery Unit Vital Signs Most Recent Imported Vital Signs: Most Recent Vital Signs Temp Pulse Resp BP Pulse Ox 36.5 C 58 L 18 120/70 98 05/21/23 09:14 05/21/23 09:14 05/21/23 09:14 05/21/23 09:14 05/21/23 09:14 Pain Score Most Recent Pain Score: Most Recent Pain Score Pain Level 0 05/21/23 09:14 Assessment Mental Status: Awake (Alert & Oriented to Patient Baseline) Airway and Respiratory Function: Patent airway with normal (patient baseline) respiratory exam Cardiovascular Function: Hemodynamically Stable Hydration Status: Adequately Hydrated Nausea & Vomiting: No Nausea or Vomiting Pain: Pt. Denies Any Pain Peripheral Nerve Block: Patient did not receive a nerve block
== END 2023-05-21 09:33 | disposition home or self-care (01) ==
LOC: SUR 07:20
PROVIDERS: PCP Physician Assistant Medical; Visit Provider Ophthalmology
PROC: (CPT 66984; principal; 2023-05-21 09:00)
DX: H25.12 Age-related nuclear cataract, left eye (principal); Z98.41 Cataract extraction status, right eye
CPT/HCPCS: 66984; V2632

== ENCOUNTER → 2024-02-29 02:03 | Outpatient (CLI) | payer MEDICARE, MEDICAID, SELFPAY ==
--- NOTE | 2024-02-29 14:30 | DI.US_ITS ---
APPROVED REPORT EXAM: Comprehensive 2D, Doppler, and color-flow Echocardiogram Patient Location: Out-Patient [facility] Instructor: Mary Kern RDCS (AE) Indications: SOB, h/o Lung surgery right side Other Information Study Quality: Fair. Technically limited study due to body habitus, lung disease. History of lung shahzad paul. Limited parasternal and subcostal imaging windows.. Conclusion Left ventricle appears normal in size wall thickness and systolic function. Ejection fraction is 60% Right ventricle is grossly normal in size and systolic function Both atria are normal in size Within the limits of the study there is no significant valvular disease identified Wall motion Left Ventricle Technically limited parasternal imaging window. The overall left ventricular systolic function appear s normal. Regional wall motion is grossly normal. LVEF is 60%. Right Ventricle The right ventricle is normal size. The right ventricular systolic function is normal. Atria The left atrium size is normal. The right atrium size is normal. Aortic Valve Technically limited parasternal imaging window, grossly normal in apical view. There is no aortic va lvular stenosis. No aortic regurgitation is present. Mitral Valve Technically limited parasternal imaging window, grossly normal in apical view. No evidence of mitral valve stenosis. Trace mitral regurgitation. Tricuspid Valve The tricuspid valve is normal in structure. There is no tricuspid valve stenosis. Trace tricuspid reg urgitation. Unable to assess PA pressure. Pulmonic Valve Pulmonic valve is not well visualized. Technically limited parasternal imaging window. Great Vessels The aortic root is not well visualized but is probably normal size. Ascending aorta is not well visu alized. Aortic arch is normal in caliber. The IVC was not visualized. Technically limited subcostal i maging. Unable to compress, patient had pain. Pericardium Technically limited, unable to compress patient had pain. 2D Dimensions Ao Root d 2.57 cm F: 2.7 - 3.3 M-Mode TAPSE 1.68 cm (M/F) >1.7 Auto EF LV EDV A4C 80.9 mL LV EDV A2C 58.8 mL LV EDV BP 67.8 mL LV ESV A4C 32.3 mL LV ESV A2C 20.3 mL LV ESV BP 25.9 mL LVEF(%) A4C 60.1 % LVEF(%) A2C 65.5 % LVEF(%) BP 61.8 % LV SV A4C 48.6 ml LV SV A2C 38.5 ml LV SV BP 41.9 ml LV CO A4C 4.4 L/min LV CO A2C 3.4 L/min LV CO BP 3.9 L/min HR A4C 89.55 BPM HR A2C 89.55 BPM LV EDV Index (BP) LV Strain Long Pk Overal Avg (s) 15.91 LA Volume LA Length A4C 3.4 cm LA Length A2C 3.9 cm LA Area A4C s 6.99 cm2 LA Area A2C s 9.66 cm2 LA Vol A4C A-L 12.21 mL LA Vol A2C A-L 20.08 mL LA Vol Biplane A-L 16.9 mL LA Vol/BSA A4C A-L LA Vol/BSA A2C A-L LA Vol/BSA BP A-L 9.3 mL/m2 LA Vol A4C MOD 11.4 mL LA Vol A2C MOD 18.8 mL LA Vol BP MOD 15.8 mL RA Volume RA Area A4C 5.5 cm2 RA ESV A4C (A-L) 8.3mL RA Vol/BSA A4C A-L RA Length A4C 3.1 cm RA ESV A4C (MOD) 7.7mL LV Diastology MV E' medial 0.061 (>0.07 m/s) MV E Vmax 0.86 (0.4-1.3 m/s) MV E/E' MED 14.17 (<14) MV A Vmax 1.25 (0.4-1.3 m/s) MV E' lateral 0.082 (>0.1 m/s) E/A Ratio 0.7 MV E/E' LAT 10.47 (<14) MV E' Average 0.071 m/s MV E/E'(average) 12.04 Aortic Valve AoV Vmax 1.77 m/s LVOT Vmax 1.22 m/s AoV Peak Grad 12.6 mmHg LVOT Peak Grad 5.9 mmHg AoV Area (Vmax) 2.06 cm2 LVOT VTI 0.196 m AoV VTI 0.291 m LVOT Mean Grad 3.1 mmHg AoV Mean Emir. 1.17 m/s LVOT SV 58.69 mL AoV Mean Grad 6.2 mmHg LVOT Diam s 1.95 cm AoV Area (VTI) 2.02 cm2 Velocity Ratio 0.69 Mitral Valve MV DT 215 (160-240 msec) MV Vmax TIPS 1.27 m/s MV Mean Grad 3.0 (<2mmHg) MV VTI 0.230 m Tricuspid Valve RA Pressure 3.00 mmHg TV S' 0.12 m/s
== END ==
PROVIDERS: PCP Physician Assistant Medical; Visit Provider Family Medicine
DX: R06.02 Shortness of breath (principal)
CPT/HCPCS: 93306

== ENCOUNTER 2024-05-18 02:20 | Outpatient (CLI) | payer MEDICARE, MEDICAID, SELFPAY ==
--- NOTE | 2024-05-18 | DI.RAD_ITS ---
Exam(s) XR FOOT LT LIMITED EXAM: XR FOOT LT LIMITED CLINICAL HISTORY: RHEUMATOID ARTHRITIS MULTIPLE JOINTS M05.79 BILAT FOOT PAIN M79.671 M79.672. TECHNIQUE: 2D digital imaging was performed of the left foot. Two images were obtained. AP and lat eral views were obtained. COMPARISON: No exams were available for comparison FINDINGS: BONES: No acute fracture is present. No bony destructive lesion is seen. There is an enthesophyte at the posterior calcaneus. There is a moderate-sized plantar calcaneal spur. JOINTS: No dislocation present. There is mild narrowing of the 1st metatarsophalangeal joint. No ero sions or periarticular osteopenia is present. SOFT TISSUE: There is soft tissue swelling of the forefoot. No soft tissue gas or radiopaque foreign bodies are seen. IMPRESSION: 1. Mild joint space narrowing at the 1st MTP joint. No erosions or periarticular osteopenia. 2. Calcaneal spurs. DATA REPOSITORY: RADIATION DOSE DELIVERED:
--- NOTE | 2024-05-18 | DI.RAD_ITS ---
Exam(s) XR ARTHRITIS SERIES EXAM: XR ARTHRITIS SERIES CLINICAL HISTORY: RHEUMATOID ARTHRITIS MULTIPLE JOINTS M05.79 BILAT HAND PAIN M79.641 M79.642. TECHNIQUE: 2D digital imaging was performed. Two views of both hands. COMPARISON: No exams were available for comparison FINDINGS: BONES: No acute fracture is present. Old nonunited left ulnar styloid fracture. No erosive or produ ctive bony lesions are seen. JOINTS: No dislocation present. Narrowing of the interphalangeal joints of the fingers and mild pe riarticular spurring. Mild narrowing of the the 2nd MCP joint of the right hand in both 1st MCP join ts. SOFT TISSUE: Normal. IMPRESSION: Findings consistent with osteoarthritis. No findings specific for rheumatoid arthritis. DATA REPOSITORY: RADIATION DOSE DELIVERED:
--- NOTE | 2024-05-18 | DI.RAD_ITS ---
Exam(s) XR FOOT RT LIMITED EXAM: XR FOOT RT LIMITED CLINICAL HISTORY: RHEUMATOID ARTHRITIS MULTIPLE JOINTS M05.79 BILAT FOOT PAIN M79.671 M79.672. TECHNIQUE: 2D digital imaging was performed of the right foot. Two images were obtained. AP and la teral views were obtained. COMPARISON: CR XR FOOT LT LIMITED from 05/18/2024 FINDINGS: BONES: No acute fracture is present. No bony destructive lesion is seen. There is an enthesophyte at the posterior calcaneus. There is a small plantar calcaneal spur. JOINTS: No dislocation present. There is moderate narrowing and spurring of the 1st MTP joint. Metac arpophalangeal joints are otherwise well maintained. No erosions or periarticular osteopenia is seen . There are phalangeal joints are fairly well maintained. SOFT TISSUE: There is edema seen in the soft tissues of the foot. No radiopaque foreign body or gas is seen. IMPRESSION: 1. Mild degenerative changes are seen in the foot. 2. Mild soft tissue swelling of the foot. No soft tissue gas or radiopaque foreign body. 3. Calcaneal spurs. DATA REPOSITORY: RADIATION DOSE DELIVERED:
[2024-05-18 14:19] LABS: Abs Immature Grans 0.11 10^3/uL (0.0-0.06); Absolute Basophil Count 0.03 10^3/uL (0.0-0.2); Absolute Lymphocyte Count 0.99 10^3/uL (1.2-3.4); Absolute Monocyte Count 0.42 10^3/uL (0.1-0.8); Absolute Neutrophil Count 8.69 10^3/uL (1.2-6.7); Basophils % 0.3 %; HCT 40.4 % (36.0-46.0); HGB 12.7 g/dL (11.2-15.7); Immature Grans % 1.1 %; Lymphocytes % 9.7 %; MCH 24.2 pg (27.0-33.0); MCHC 31.4 % (32.0-36.0); MCV 77 fL (80-95); MPV 8.6 fL (8.0-11.0); Monocytes % 4.1 %; Neutrophils % 84.8 %; Platelet Count 390 10^3/uL (130-400); RBC 5.25 10^6/uL (3.93-5.22); RDW 17.1 % (11.7-14.6); RDW-SD 47.5 fL; WBC 10.24 10^3/uL (4.4-10.8)
[2024-05-18 15:10] LABS: ALT 23 U/L (14-59); AST 13 U/L (15-37); Albumin 3.3 g/dL (3.4-5.0); Alkaline Phosphatase 85 U/L (46-116); Anion Gap 10.4 mmol/L (3-11); BUN 11 mg/dL (7-18); Bilirubin, Total 0.27 mg/dL (0.2-1.0); CO2 26.6 mmol/L (21.0-32.0); CREATININE 0.9 mg/dL (0.55-1.02); Calcium 9.4 mg/dL (8.5-10.1); Chloride 99 mmol/L (98-107); Creatine Kinase 32 U/L (26-192); Estimated GFR 68.77 (mL/min/1.73m2); Glucose 131 mg/dL (74-106); Potassium 4.3 mmol/L (3.5-5.1); Sodium 136 mmol/L (136-145); Total Protein 7.4 g/dL (6.4-8.2); Uric Acid 7.1 mg/dL (2.6-6.0)
[2024-05-19 09:07] LABS: Hepatitis B Surface Ag Negative (Negative)
[2024-05-19 09:33] LABS: Hep B Core Antibody Negative (Negative)
[2024-05-19 09:49] LABS: Hepatitis C Ab w Rflx HCV PCR Negative (Negative)
[2024-05-19 09:54] LABS: HBs Antibody, Quant 9.8 mIU/mL (See Note); Hepatitis B Surface Ab Negative (See Note)
[2024-05-19 18:25] LABS: Rheumatoid Factor 608.9 IU/mL (<12.0)
[2024-05-22 14:53] LABS: TB Interpretation Negative (Negative)
== END 2024-05-18 02:40 ==
LOC: DI 02:21
PROVIDERS: PCP Physician Assistant Medical; Visit Provider Internal Medicine Rheumatology
DX: Z79.899 Other long term (current) drug therapy (principal); M85.89 Other specified disorders of bone density and structure, multiple sites
CPT/HCPCS: 36415; 80053; 82550; 86704; 86706; 86803; 87340; 73120; 73620; 84550; 85025; 86431; 86480

== ENCOUNTER 2024-07-20 13:35 | Emergency (ER) | payer MEDICARE, MEDICAID, SELFPAY ==
[2024-07-20] VITALS (24 sets, daily range): BP systolic 124–175; BP diastolic 56–128; PULSE 74–105; RESP 13–31; TEMP 36.7; O2SAT 96–98
--- NOTE | 2024-07-20 13:54 | DI.CT_ITS ---
Exam(s) CT ABD AORTA CTA W RUNOFF EXAM: CT ABD AORTA CTA W RUNOFF CLINICAL HISTORY: pallor, pain out of proportion, decreased pulses. TECHNIQUE: Imaging Protocol: Axial CT angiography was performed with multi-slice acquisition and mu lti-planar and/or 3D reconstructions. CONTRAST MATERIAL: Intravenous: Omnipaque 350 Contrast volume:150 ml Contrast route:IV - Oral: / no COMPARISON: CT CT ABDOMEN PELVIS WO from 01/09/2022 CR XR FOOT RT LIMITED from 05/18/2024 FINDINGS: Vascular Structures: Heart: Normal size. Coronary artery calcifications. Abdomen: Celiac Tarzana/SMA: No evidence of stenosis. Renal Arteries: No evidence of stenosis. There is a single renal artery perfusing each kidney. Aorta: No aneurysm. No dissection. Heavy atherosclerotic plaque distally. Pelvis: Iliac Arteries: Moderate stenosis left. Mild stenosis right. Lower extremities: Right: Severe, extensive calcifications throughout the lower extremity vessels with some areas of severe clem nosis in multiple locations however the vessels remain patent to the level of the toes. Left: Common Femoral: Occlusion from proximal portion through distal superficial femoral artery with sever e irregular calcifications throughout. Some reconstitution of the popliteal artery above the level o f the knee. Multifocal calcifications at the level of the trifurcation. Tapering of vessels distal to the trifurcation with no flow detectable from the level of the mid calf through the foot. The profundus femoral artery is patent. Soft Tissues: Lungs: No acute findings. Liver: Hepatic steatosis.. No measurable mass. Gallbladder and biliary tract: No radiodense calculus or dilation. Pancreas: Normal density, no abnormal calcifications or inflammatory process. Spleen: Normal. Kidneys: Normal size, contour and axis. Stable left hydronephrosis. Mild delay in left nephrogram. No masses seen. Adrenal glands: No masses seen. Bladder: Small amount of air. Mild wall thickening. No focal mass is visible. Bowel: No obstruction or bowel wall thickening. Diverticulosis throughout the colon. No evidence of diverticulitis. Peritoneal cavity: No ascites, collection or mesenteric inflammatory response. Bones: Unremarkable for age. Reproductive: Unremarkable. IMPRESSION: Extensive atherosclerotic changes. 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 No flow seen from the mid calf distally. Severe atherosclerotic changes involving the right lower extremity but no evidence of occlusion. mu ltifocal areas of severe stenosis however the vessels patent to the level of the toes. Findings called to Lizzette Lamb, ER provider. RADIATION DOSE DELIVERED: 810.06mGy.cm Total DLP DATA REPOSITORY: All CT scans at this facility are submitted to the National Radiology Data Registry (NRDR) Dose Index Registry (DIR) with the [employer] (ACR). RADIATION OPTIMIZATION: All CT scans at this facility use at least one of these dose optimization te chniques: automated exposure control; mA and/or kV adjustment per patient size (includes targeted exa ms where dose is matched to clinical indication); or iterative reconstruction.
--- NOTE | 2024-07-20 13:58 | ED.GENADUL_ITS ---
Discharge Plan Disposition Patient Disposition: Transfer-Acute Inpatient Care Specific Acute Inpt Facility: [facility] Condition: Serious Discharge Details Chief Complaint: Vascular Clinical Impression: Arterial occlusion, lower extremity Primary Care Provider: Adela Madrid ED Provider: Lizzette Lamb Home Meds and New Rx's Prescriptions: No Action acetaminophen [Tylenol Extra Strength] 500 mg Tablet 1,000 mg PO BID PRN nicotine 21 mg/24 hr Patch 24 Hour 1 patch TRANSDERMAL DAILY oxycodone 10 mg Tablet 10 mg PO DIRECTED naloxone [Narcan] 4 mg/actuation [place],Non-Aerosol 1 spray INTRANASAL Q2M vitamin E 1,000 unit Tablet 1 tab PO DAILY furosemide [Lasix] 20 mg tablet 20 mg PO DAILY prednisone 5 mg tablet 10 mg PO DAILY Patient Comments: TAKE ONE TO TWO TABLETS BY MOUTH EVERY 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 TAKE SMALLEST AMOUNT THAT HOLDS OFF FLA ciprofloxacin HCl 500 mg tablet 500 mg PO BID Patient Comments: TAKE ONE TABLET BY MOUTH TWICE A DAY FOR 5 DAYS BEGIN 3 DAYS BEFORE UPCOMING SURGERY oxycodone 5 mg tablet 5 mg PO Q6H Patient Comments: TAKE ONE TABLET BY MOUTH FOUR TIMES A DAY HPI General Date/Time Provider Initiated Documentation: 07/20/24 13:37 . Limitations to Documentation: no limitations . Information obtained by: patient and RN notes reviewed . History of Present Illness 69 year old F presents to the emergency department with the chief complaint of left leg pain, described as severe, with intensity rated at 10. Quality is described as stabbing, and is localized to the left and lower extremity. Patient proximal. Patient started experiencing this hour(s) and it has been constant. No relieving factors improve symptom(s), No exacerbating factors reported . Patient notes no other symptoms.. Patient did receive the following treatments prior to arrival, none Related Data Home Medications ?Medication ?Instructions ?Recorded ?Confirmed acetaminophen 500 mg tablet 1,000 mg PO BID PRN 02/26/21 07/20/24 (Tylenol Extra Strength) naloxone 4 mg/actuation nasal 1 spray intranasal Q2M 02/26/21 05/19/23 spray (Narcan) nicotine 21 mg/24 hr daily 1 patch transdermal DAILY 02/26/21 07/20/24 transdermal patch oxycodone 10 mg tablet 10 mg PO DIRECTED 02/26/21 07/20/24 vitamin E 1,000 unit tablet 1 tab PO DAILY 05/06/23 05/21/23 ciprofloxacin HCl 500 mg tablet 500 mg PO BID 07/20/24 07/20/24 furosemide 20 mg tablet (Lasix) 20 mg PO DAILY 07/20/24 07/20/24 oxycodone 5 mg tablet 5 mg PO Q6H 07/20/24 07/20/24 prednisone 5 mg tablet 10 mg PO DAILY 07/20/24 07/20/24 Allergies Allergy/AdvReac Type Severity Reaction Status Date / Time animal dander Allergy Unknown Other (See Verified 07/20/24 13:55 Comment) latex Allergy Unknown Edema Verified 07/20/24 13:55 Penicillins Allergy Unknown Skin Rash Verified 07/20/24 13:55 codeine AdvReac Unknown Nausea Verified 07/20/24 13:55 Sulfa (Sulfonamide AdvReac Unknown Nausea Verified 07/20/24 13:55 Antibiotics) General Stated Complaint: Vascular BEKAH: 3 Review of Systems Constitutional Constitutional: Reports as per HPI, Denies chills, Denies fever(s) and Denies headache(s) ENT Ears, Nose, Mouth, and Throat: Denies dizziness and Denies headache(s) Cardiovascular Cardiovascular: Reports as per HPI, Denies dyspnea and Denies dyspnea on exertion Respiratory Respiratory: Reports as per HPI, Denies chest congestion, Denies cough, Denies pain on inspiration, Denies pain with cough, Denies dyspnea and Denies dyspnea on exertion Gastrointestinal Gastrointestinal: Reports as per HPI, Denies abdominal pain, Denies diarrhea, Denies nausea and Denies vomiting Musculoskeletal Musculoskeletal: Reports as per HPI and Denies back pain Integumentary/Breasts Skin/Breast: Reports as per HPI and Denies rash Neurologic Neurologic: Reports as per HPI, Denies dizziness and Denies headache(s) Exam Const General: cooperative, healthy appearing, no acute distress and well developed Nutritional Appearance: average body habitus and well nourished Orientation: alert, awake and oriented x3 Resp Effort & Inspection: normal respiratory effort, able to speak in complete sentences and no respiratory distress Auscultation: clear to auscultation bilaterally, no rales, no rhonchi and no wheezes Cardio Rate: regular rate Rhythm: regular rhythm Heart Sounds: S1 normal and S2 normal GI Inspection: normal to inspection, no edema and non-distended Palpation: soft, no hepatosplenomegaly, not firm, no guarding, not rigid and nontender Skin General skin exam: pallor Neuro General: patient alert, patient awake and patient oriented x3 Cognition: normal cognition Speech: speech normal Extrem General: capillary refill delayed (decreased left foot), calf tenderness and pedal edema Upper/lower leg/hip images: 2 1. Patient is pale and cold from the knee down on the left lower extremity. Sensation is diminished. She is able to move her toes but feels that it is weaker and has less mobility than the contralateral side. Unable to palpate or Doppler a pulse in the left lower extremity. Large amount of scarring in the groin makes it difficult to palpate pulse in this area as well. Patient does have bilateral lower extremity pitting edema. Course Vital Signs Vital signs: Vital Signs Temperature 36.7 C 07/20/24 13:42 Pulse 97 H 07/20/24 13:42 Respiratory Rate 23 07/20/24 13:42 Blood Pressure 175/60 H 07/20/24 13:42 Pulse Oximetry 96 07/20/24 13:42 Temperature 36.7 C 07/20/24 13:42 Temperature Source Temporal Artery Scan 07/20/24 13:42 Pulse 97 H 07/20/24 13:42 Respiratory Rate 20 07/20/24 13:47 Respiratory Effort Normal 07/20/24 13:47 Respiratory Depth Normal 07/20/24 13:47 Respiratory Pattern Normal 07/20/24 13:47 Blood Pressure 175/60 H 07/20/24 13:42 Blood Pressure Position Supine 07/20/24 13:42 Pulse Oximetry 96 07/20/24 13:42 Oxygen Delivery Method Room Air 07/20/24 13:42 Oxygen Flow Rate 0 07/20/24 13:42 Pain Level 9 07/20/24 13:47 Medical Decision Making Patient is a pleasant 69-year-old female past medical history significant for vulvar cancer, bladder cancer with resection of lesions yesterday, COPD, acid reflux, depression, anxiety, hyperlipidemia, presenting today via EMS with severe left leg pain that came on suddenly with stabbing pain radiate up to the groin. Patient's not had pain like this historically. She denies any fall or trauma. EMS noted the foot to be cold. She denies any chest pain or shortness of breath. States she was at home ambulating around her home when this came on. She nonnursing any posterior calf pain but is endorsing some numbness and weakness. The numbness began prior to the severe pain. Patient is not anticoagulated. On exam, patient appears nontoxic, she is slightly tacky and hypertensive but otherwise stable. Normal cardiac and pulmonary exam. Abdomen is benign, no pulsatile mass. Getting groin pulses is quite difficult given the large amount of vulvar scarring the patient has that extends into the groin region. However, the left foot is notably cold compared to the right foot. She has pitting edema bilaterally. The left foot does appear more pale than the right. Unable to Doppler pulse in the left. Concern for potential arterial occlusion will obtain CTA. Sensory deficit at the foot and decreased toe movement compared to the contralateral side. Pain is out of proportion, increasing, will give Dilaudid. She has had allergy to codeine but states she has not had rxn to other narcotics. Labs reviewed. White count is normal, hemoglobin 9.2, platelets 329, coags relatively normal, dimer is elevated, glucose 213, troponin within normal limits. Spoke briefly with radiologist who quickly reviewed the images and agrees with my refereed of arterial occlusion. She notes popliteal is very narrow left leg, no flow distal to this. Will call vascular surgery at [facility]. Will begin on heparin both bolus and drip. Patient remaining n.p.o. Consulted with vascular surgery, Dr. Davis. He agrees that patient needs to go to their facility for emergent surgical intervention, particularly as the patient has been having neurologic deficits. Concerned that once pt has numbness or weakness, the concern for loss of limb is greatly increased. He advised adding aspirin to heparin as well. We also discussed that the patient has had vulvar cancer historically as well as radiation and has large amount of scar tissue in the groin area. She did have a history of lymph node resection, node resection was on the left side and right as confirmed by the patient. They will try to have [facility] helicopter transfer the patient to expedite potential for limb salvage. Called back from radiologist- occlusion from femoral to the popliteal. Some reconstituted flow until the trifurcation. I discussed these findings with the patient. She and I had a lengthy discussion regarding risk and benefit of heparin, particularly as she had surgical intervention yesterday. As risk otherwise would be potential loss of limb, she agrees to move forward with this. In the event that she does begin to bleed again, the patient does consent to having blood products. I will add on type and screen. She and I also discussed her CODE STATUS and patient wishes to be full code. I did offer to call family and she declined. However, odd bundle worker was at bedside speaking with patient. Patient agrees to transfer to [facility] via helicopter for vascular intervention for her arterial occlusion to the left lower extremity. Quality:SDOH Health Related Social Needs: 2 No Data to Display [facility] All Active Problems (Updated 07/20/24 @ 15:58 by DOM Roth) Arterial occlusion, lower extremity (Acute) Medical History (Updated 07/20/24 @ 15:58 by DOM Roth) Abnormal electrocardiogram had stress test on 04/28 @ [facility] per pt. 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 Surgical History (Updated 05/21/23 @ 09:17 by Stewart Thompson MD) History of shoulder surgery Hx of lymph node excision History of cystoscopy History of carpal tunnel release of both wrists History of surgical procedure on mouth Social History (Updated 03/05/21 @ 09:02 by Melina Magana) Smoking/Tobacco Use Status: Former Tobacco Use Quit Date: 05/07/23 Smoking risk assessment performed?: Yes Alcohol Intake: never Drug use: Never Substance use type: does not use Household members: family Housing: house Number of Children: 4 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
[2024-07-20 14:31] LABS: Abs Immature Grans 0.09 10^3/uL (0.0-0.06); Absolute Basophil Count 0.01 10^3/uL (0.0-0.2); Absolute Lymphocyte Count 0.72 10^3/uL (1.2-3.4); Absolute Monocyte Count 0.38 10^3/uL (0.1-0.8); Absolute Neutrophil Count 8.13 10^3/uL (1.2-6.7); Basophils % 0.1 %; HCT 31.5 % (36.0-46.0); HGB 9.2 g/dL (11.2-15.7); Lymphocytes % 7.7 %; MCH 21.6 pg (27.0-33.0); MCHC 29.2 % (32.0-36.0); MCV 74 fL (80-95); MPV 8.7 fL (8.0-11.0); Monocytes % 4.1 %; Neutrophils % 87.1 %; Platelet Count 329 10^3/uL (130-400); RBC 4.25 10^6/uL (3.93-5.22); RDW 16.5 % (11.7-14.6); WBC 9.33 10^3/uL (4.4-10.8)
[2024-07-20] MEDS: HYDROmorphone 2 MG/ML SYR 1 MG IVP ×2 (14:34→16:46)
[2024-07-20] MEDS: Normal Saline - Diluent 50 ML VIAL IJ ×2 (14:37→14:40)
[2024-07-20] MEDS: Omnipaque 350 MG/ML 50 ML BTL IJ (14:40)
[2024-07-20] MEDS: Omnipaque 350 MG/ML 100 ML BTL IJ (14:41)
[2024-07-20 14:52] LABS: INR 1.2 (0.9-1.1); PTT Activated 21.6 sec (23.6-32.8); Prothrombin Time 11.5 sec (9.1-11.1)
[2024-07-20 14:55] LABS: ALT 15 U/L (14-59); AST 8 U/L (15-37); Albumin 2.7 g/dL (3.4-5.0); Alkaline Phosphatase 85 U/L (46-116); Anion Gap 9.9 mmol/L (3-11); BUN 13 mg/dL (7-18); Bilirubin, Total 0.18 mg/dL (0.2-1.0); CO2 27.1 mmol/L (21.0-32.0); Calcium 9.2 mg/dL (8.5-10.1); Chloride 102 mmol/L (98-107); Estimated GFR 60.61 (mL/min/1.73m2); Glucose 213 mg/dL (74-106); Potassium 3.1 mmol/L (3.5-5.1); Sodium 139 mmol/L (136-145); Total Protein 7.3 g/dL (6.4-8.2); Troponin I 5 ng/L (<or=51)
[2024-07-20 15:06] LABS: D-Dimer 976 ng/mlFEU (<500)
[2024-07-20] MEDS: Heparin in 0.45% NaCl 25,000 UNIT/250 ML BAG 14 UNIT IVINF (15:30)
[2024-07-20] MEDS: Aspirin 81 MG CHEW 324 MG CH (15:34)
[2024-07-20 15:51] LABS: Troponin I 8 ng/L (<or=51)
== END 2024-07-20 16:50 | disposition short-term general hospital (02) ==
PROVIDERS: Emergency Provider Physician Assistant; PCP Physician Assistant Medical
DX: I77.1 Stricture of artery (principal); E78.5 Hyperlipidemia, unspecified; J44.9 Chronic obstructive pulmonary disease, unspecified; Z87.891 Personal history of nicotine dependence
CPT/HCPCS: 75635; 80053; 86850; 86900; 86901; 96374; 96375; 99285; 83735; 84484; 85025; 85379; 85610; 85730; J1171; J1644; J3490; Q9967

== ENCOUNTER 2024-07-26 11:49 | Inpatient (IN) | payer MEDICARE, MEDICAID, SELFPAY ==
--- NOTE | 2024-07-26 11:59 | W.PM.HP.N ---
Date of service: 07/26/24 Time of Service: 12:33 Assessment and Plan Assessment and plan (1) Arterial occlusion, lower extremity: Status: Acute Assessment and plan: - Diagnosis at [facility] emergency department on 07/20/2024 and was subsequently transferred to [facility] for revascularization -Patient tolerated procedure well, and has been transferred back to [facility] for ongoing therapy and subacute rehab placement -Continue twice daily Eliquis, and daily aspirin (2) Hyperlipidemia: Assessment and plan: - Continue home atorvastatin 80 mg at bedtime (3) COPD (chronic obstructive pulmonary disease): Assessment and plan: - Continue home inhaler regimen (4) Urothelial cancer: Status: Acute Assessment and plan: -High-grade, status post TURBT -Patient also has other cancers including 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 status post surgery, 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 status post right VATS right upper lobe wedge resection and lymph node dissection (5) Anxiety: Assessment and plan: - Continue as needed diazepam History of Present Illness History of Present Illness Chief Complaint: Generalized weakness Narrative: 6-year-old female with a past medical history of hyperlipidemia, obesity, COPD, current smoker about 1 to 2 packs/day, high-grade urothelial cancer status post TURBT and new left hydronephrosis on PET, locally advanced and metastatic squamous cell carcinoma stage III/Ramez of the vulva/vagina status post surgery chemotherapy 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 She was started on heparin drip and was transferred to [facility] under vascular surgery service for left brachial cutdown and balloon angioplasty revascularization of the left common femoral artery. She did require 1 unit of packed red blood cells postoperatively and hemoglobin stabilized. She was also found to have urinary tract infection for which she was treated with ciprofloxacin. Patient recovered well from surgery and was able to move and ambulate with physical therapy but was unable to have safe discharge plan and thus was transferred back to [facility] under swing bed 1 status for continued physical therapy and to work on safe discharge plan. Upon patient arriving to [facility] she states that she is feeling well and has no other complaints or concerns at this time. Review of Systems All systems reviewed & are unremarkable except as noted in HPI and below PFSH All Active Problems (Updated 07/26/24 @ 12:45 by Diogo Pope MD) UTI (urinary tract infection) (Acute) Urothelial cancer (Acute) Arterial occlusion, lower extremity (Acute) Medical History (Updated 07/26/24 @ 12:45 by Diogo Pope MD) Abnormal electrocardiogram had stress test on 04/28 @ [facility] per pt. 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 Surgical History (Updated 05/21/23 @ 09:17 by Stewart Thompson MD) History of shoulder surgery Hx of lymph node excision History of cystoscopy History of carpal tunnel release of both wrists History of surgical procedure on mouth Social History (Updated 03/05/21 @ 09:02 by Melina Magana) Smoking/Tobacco Use Status: Former Tobacco Use Quit Date: 05/07/23 Smoking risk assessment performed?: Yes Alcohol Intake: never Drug use: Never Substance use type: does not use Household members: family Housing: apartment Number of Children: 4 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 What type of physical activity do you participate in: independent ambulation Do you feel safe at home: Yes Do you feel safe in your relationship?: Yes Meds Allergies and Home Medications Allergies Allergy/AdvReac Type Severity Reaction Status Date / Time animal dander Allergy Unknown Other (See Verified 07/20/24 13:55 Comment) latex Allergy Unknown Edema Verified 07/20/24 13:55 Penicillins Allergy Unknown Skin Rash Verified 07/20/24 13:55 codeine AdvReac Unknown Nausea Verified 07/20/24 13:55 Sulfa (Sulfonamide AdvReac Unknown Nausea Verified 07/20/24 13:55 Antibiotics) Home Medications ?Medication ?Instructions ?Recorded ?Confirmed ?Type acetaminophen 500 mg tablet 1,000 mg PO BID PRN 02/26/21 07/26/24 History (Tylenol Extra Strength) naloxone 4 mg/actuation nasal 1 spray intranasal Q2M 02/26/21 07/26/24 History spray (Narcan) nicotine 21 mg/24 hr daily 1 patch transdermal DAILY 02/26/21 07/26/24 History transdermal patch oxycodone 10 mg tablet 10 mg PO DIRECTED 02/26/21 07/26/24 History furosemide 20 mg tablet (Lasix) 20 mg PO DAILY 07/20/24 07/26/24 History oxycodone 5 mg tablet 5 mg PO Q6H 07/20/24 07/26/24 History prednisone 5 mg tablet 10 mg PO DAILY 07/20/24 07/26/24 History albuterol sulfate 90 mcg/actuation inhalation 07/26/24 History aerosol inhaler diazepam 2 mg tablet mg 07/26/24 History pantoprazole 40 mg tablet,delayed mg PO 07/26/24 History release potassium chloride 10 mEq meq PO 07/26/24 History tablet,extended release Exam Narrative Exam Narrative: Well-appearing older female sitting up in the chair no acute distress, left upper extremity wrapped in Azael bandage without surrounding erythema or drainage, awake alert oriented x 4, heart regular rate rhythm, lungs clear to auscultation bilaterally, abdomen soft, nontender, nondistended, normal sensation and strength in bilateral lower extremities Time Spent Time spent with Patient: >75 minutes Time was spent: preparing to see the patient(eg.review tests), obtaining and/or reviewing separately otained hiistory, ordering medications,tests, procedures, referring, communicating with other health vocational childcare teacher, indepentently interpreting results, counseling the patient and care coordination
[2024-07-26 12:27] VITALS: BP 123/90; PULSE 92; RESP 16; TEMP 36; O2SAT 96
--- NOTE | 2024-07-26 13:15 | W.PC.ACHO ---
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 (Last Reviewed 05/21/23 @ 07:29 by Craig Woodruff) History of shoulder surgery Hx of lymph node excision History of cystoscopy History of carpal tunnel release of both wrists History of surgical procedure on mouth Most Recent Vital Signs Temperature 36 C L 07/26/24 12:27 Pulse 92 H 07/26/24 12:27 Pulse Rhythm Regular 07/26/24 12:27 Respiratory Rate 16 07/26/24 12:27 Respiratory Effort Normal 07/26/24 12:27 Respiratory Depth Normal 07/26/24 12:27 Respiratory Pattern Normal 07/26/24 12:27 Blood Pressure 123/90 07/26/24 12:27 Pulse Oximetry 96 07/26/24 12:27 Oxygen Delivery Method Room Air 07/26/24 12:27 Oxygen Flow Rate 0 07/26/24 12:27 Pain Level 6 07/26/24 12:27 Allergies animal dander Allergy (Unknown, Verified 07/20/24 13:55) Other (See Comment) congestion latex Allergy (Unknown, Verified 07/20/24 13:55) Edema Penicillins Allergy (Unknown, Verified 07/20/24 13:55) Skin Rash codeine Adverse Reaction (Unknown, Verified 07/20/24 13:55) Nausea Sulfa (Sulfonamide Antibiotics) Adverse Reaction (Unknown, Verified 07/20/24 13:55) Nausea Diet Orders Category Date Time Status Heart Healthy Eating [DIET] Nutrition 07/26/24 Lunch Active Intake and Output - 24 Hour Total 07/25/24 12:48 thru 07/26/24 12:27 Weight 74.096 kg Falls Risk Assessment History of Falls No History 07/26/24 12:27 Contributing Factors Impairments 07/26/24 12:27 Ambulatory Aids Independent 07/26/24 12:27 Tubes/Lines None 07/26/24 12:27 Gait Evaluation W/no contributing factors 07/26/24 12:27 Cognition No cognitive impairment 07/26/24 12:27 Fall Total Score 13 07/26/24 12:27 Level of Risk Standard/Low Risk 07/26/24 12:27 Problems (Last Reviewed 05/21/23 @ 07:29 by Craig Woodruff) Urothelial cancer (Acute) Arterial occlusion, lower extremity (Acute) v v v v v v v v v Sending and/or Receiving Nurses: Please use comment section below to note any information pertinent to the patient hand-off not included above. Information / Comments: Report received from: Martha at [facility] at 1045, pt arrived at 1200
[2024-07-26 13:49] VITALS: BP 123/90; PULSE 92; RESP 16; TEMP 36; O2SAT 96
[2024-07-26] MEDS: oxyCODONE 5 MG TAB PO (14:08)
[2024-07-26 15:17] VITALS: BP 122/67; PULSE 75; RESP 18; TEMP 36.5; O2SAT 97
--- NOTE | 2024-07-26 16:48 | PT.INIE ---
PT Notes Visit Reasons: Generalized weakness Physical Therapy Inpatient Initial Evaluation Date: 07/26/2024 Referring Doctor: Diogo Pope MD PT Orders: PT CONSULT: Eval/treat Precautions: Fall. Standard. Activity as tolerated. Patient Profile/Admitting Diagnosis: Patient is a 69-year-old female patient known to this provider for previous management of perineal and B thigh lymphedema. 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 PMHX: All Active Problems (Updated 07/26/24 @ 12:45 by Diogo Pope MD) UTI (urinary tract infection) (Acute) Urothelial cancer (Acute) Arterial occlusion, lower extremity (Acute) Medical History (Updated 07/26/24 @ 12:45 by Diogo Pope MD) Abnormal electrocardiogram had stress test on 04/28 @ [facility] per pt. stated everything came back normal and she was ok'd to proceed with cataract surgeryPrediabetes Dyspnea Sciatica Lesion of vulva Blood in urine Mass of urinary bladder Acid reflux COPD (chronic obstructive pulmonary disease) External hemorrhoids Depressive disorder Nicotine dependence Anxiety Hyperlipidemia Squamous cell carcinoma Primary malignant neoplasm of urethra Surgical History (Updated 05/21/23 @ 09:17 by Stewart Thompson MD) History of shoulder surgery Hx of lymph node excision History of cystoscopy History of carpal tunnel release of both wrists History of surgical procedure on mouth Social History/Home Situation: Lives alone in a private home with 5 steps to enter. Independent with all aspects of ADLs prior to surgery without an assistive device. Son from [facility] will be coming to temporarily stay with her to provide support and assistance that she may need upon discharge from home. Equipment Owned/DME: FWW Subjective: Want to know when she can take her anti anxiety medications. Patient requested to be helped to use the bathroom to void urine. Complains of 8 pain over surgical sites with movement. Confused about why her Dilaudid was stopped and is wondering whether her Oxycodone dosage can be increased. Also wants to know why she now has a covering over her surgical site on her L arm. Medication and wound dressing issues have been relayed to Nurse Taniya who promptly came back and re-explained to patient about medication change/wound dressing plan. Objective: General Observation: Seated on bedside chair. Post op wound to L medial arm and axillary area intact and dry. Mental Status: Alert and oriented as to person, place, time, and purpose. Able to pay attention, focus, and respond appropriately. Pain:04/25 over surgical incisions Vital Signs: Closley monitored by nursing staff ROM: Right Upper Extremity: Shoulder Flexion WFL. Shoulder abduction WFL. Elbow flexion WFL. Wrist flexion WFL. Functional opening and closing of hand WFL. Left Upper Extremity: Shoulder Flexion limited to about 100 degrees due to post op status and pain. Shoulder abduction limited to about 190 degrees due to post op status and pain. Elbow flexion WFL. Wrist flexion WFL. Functional opening and closing of hand WFL. Right Lower Extremity: Hip flexion WFL. Hip abduction WFL. Knee flexion WFL. Ankle dorsiflexion to neutral only. Ankle plantarflexion WFL. Left Lower Extremity: Hip flexion WFL. Hip abduction WFL. Knee flexion WFL. Ankle dorsiflexion WFL. Ankle plantarflexion WFL. Strength: Right Upper Extremity: Shoulder flexors 4/5. Shoulder abductors 4/5. Elbow flexors 4/5. Elbow extensors 4/5. Production Service Manager strong. Left Upper Extremity: Shoulder flexors 3-/5. Shoulder abductors 3-/5. Elbow flexors 4-/5. Elbow extensors 4-/5. Production Service Manager strong. Right Lower Extremity: Hip flexors 4-/5. Hip abductors 4-/5. Knee flexors 4-/5. Knee extensors 4-/5. Ankle dorsiflexors 4-/5. Ankle plantarflexors 4-/5. Left Lower Extremity: Hip flexors 4-/5. Hip abductors 4-/5. Knee flexors 4-/5. Knee extensors 4-/5. Ankle dorsiflexors 4-/5. Ankle plantarflexors 4-/5. Bed Mobility/Transfers: Minimal cueing provided for use of B hands as needed for support, movement sequence, AD management, and posture to reduce fall risk and minimize pain report Supine to sit with contact uard assist Sit to stand contact guard assist from high chair, minimal assist from toilet seat Stand to sit contact guard assist from high chair, minimal assist from toilet seat Reclining chair to bed with conatct guard assist using FWW Gait: Facilitated safe and correct performance of short distance in-room ambulation using FWW from bedside recliner to bathroom and then to bed covering a total distance of about 50 feet with just contact guard assist. Pain report increased to 8/10 that subsided with rest. denide headache, chest pain, and lightheadedness throughout session. Balance: Static Sitting: Normal Dynamic Sitting: Normal Static Standing: Fair Dynamic Standing: Fair Special Tests: Mobility Limitations Standardized Measure [facility] AM-PAC 6 clicks Basic Mobility Inpatient Short Form: Raw Score: 19 CMS Score: 42% deficit Informed Consent/Education: Patient was instructed in purpose of PT consult and plan of care. Agreeable to proceed with established PT POC to achieve personal goals. Assessment: Patient demonstrating functional mobility decline needing the use of FWW for all mobility ADL performance which has become limited by pain and worsening anxiety over medical her overall medical status. Needs premedication for pain. Patient presents with clinical signs and symptoms consistent with current/admitting diagnoses that have resulted to mobility limitations, gait instability, generalized weakness, and overall ADL decline as demonstrated by the following impairment level findings: 1. Decreased strength to B UE/LE major muscle groups 2. Impaired sitting/standing balance 3. Impaired activity tolerance 4. Limitation of joint range of motion in B hips 5. Swelling in vulva and B LE (chronic) Impairments are contributing to the following functional limitations: 1. Decline in bed mobility skills 2. Decline in transfer skills 3. Difficulty with ambulation without assistive device and physical assistance 4. Increased completion time for mobility ADL performance 5. Increased risk for falls 6. Difficulty with managing steps alone safely Patient is assessed as a [id number] moderate complexity based on the following: History: 69-year-old female with past medical history as indicated above Examination: Demonstrable impairment in strength, balance, and mobility level with underlying impairments and functional limitations as exhibited above as well as deficit score of 42% utilizing the [facility] Mobility Inpatient Short Form Presentation: Evolving Decision Makin moderate complexity Goals: Goals X1 week 1. Supine-Sit independent 2. Sit-Supine independent 3. Sit-Stand independent 4. Stand-Sit independent with no AD 5. Bed-Chair independent with no AD 6. Chair-Bed independent with no AD 7. Independent gait on level surface with use of no AD for at least 300 feet without report of pain nor dyspnea 8. Independent stair negotiation while holding onto B rails for at least 5 steps without report of pain nor dyspnea 9. Independent with home exercise program 10. Good static and dynamic standing balance/tolerance Plan of Care/Treatment Plan: 1-2x/day, 7 days/week x 1 week. Plan of care has been reviewed with the FINANCIAL PLANNING CONSULTANT providing the service under Physical Therapy direction. Initiate Physical Therapy intervention for pain management as needed, strengthening, bed mobility, transfers, gait, stairs, balance training, and use of assistive device. DISCHARGE RECOMMENDATIONS: [] Home with no services [] [X] Home with services. Patient will benefit from home health PT services in order to progress mobility level using least restrictive assistive ambulatory device, assess home safety, identify additional equipment needs, and establish a functional maintenance program that will increase ability of patient to remain at home. [] Home with outpatient PT [] [] SNF for continued rehabilitation [] [] Data Communications Software Consultant Care [] [] SNF versus LTC based on ability to participate and progress [] TREATMENT CODE/TIME: 9 7162 x 20 minutes for 1 unit (16: 48?17:08). Thank you for the opportunity to participate in the care of this patient. Selma Uribe PT, DPT, CLT [facility] [place], [place]
[2024-07-26] MEDS: diazePAM 2 MG TAB PO ×2 (17:20→23:48)
[2024-07-26] MEDS: oxyCODONE 5 MG TAB 10 MG PO ×2 (18:10→23:48)
[2024-07-26] MEDS: Atorvastatin 40 MG TAB 80 MG PO (19:21)
[2024-07-26] MEDS: Apixaban 5 MG TAB PO (19:21)
[2024-07-26] MEDS: Docusate Sodium 100 MG CAP PO (23:48)
[2024-07-27] MEDS: oxyCODONE 5 MG TAB 10 MG PO ×2 (05:46→11:16)
[2024-07-27 07:49] VITALS: BP 130/78; PULSE 82; RESP 20; TEMP 36.6; O2SAT 95
[2024-07-27] MEDS: Aspirin 81 MG CHEW PO (08:44)
[2024-07-27] MEDS: predniSONE 10 MG TAB PO (08:45)
[2024-07-27] MEDS: Furosemide 20 MG TAB PO (08:45)
[2024-07-27] MEDS: Docusate Sodium 100 MG CAP PO ×2 (08:45→19:49)
[2024-07-27] MEDS: Apixaban 5 MG TAB PO ×2 (08:45→19:49)
[2024-07-27] MEDS: Albuterol HFA 8 GM 60 PUFF INH IH (09:46)
[2024-07-27] MEDS: diazePAM 2 MG TAB PO (11:16)
[2024-07-27] MEDS: Nicotine 14 MG/24 HR PATCH TD (12:17)
--- NOTE | 2024-07-27 15:03 | PT.INTREAT ---
PT Notes Visit Reasons: Generalized weakness Physical Therapy Inpatient Treatment Note Date: 07/27/2024 Precautions: Fall. Standard. Activity as tolerated. Subjective: Needs so much to talk with a care manger as she has many questions regarding her overall care. Nurse Vaishali and Dino collado. and CM apprised right away. Willing to work with PT so she could go home the soonest. Does not feel safe going home today. Concerned about son who still has not made to [place] from [place]. Objective: General Observation: Resting in bed. Post op wound to L medial arm and axillary area intact and dry. Mental Status: Alert and oriented as to person, place, time, and purpose. Able to pay attention, focus, and respond appropriately. Pain:04/25 over surgical incisions Vital Signs: Closeley monitored by nursing staff Bed Mobility/Transfers: Minimal cueing provided for use of B hands as needed for support, movement sequence, AD management, and posture to reduce fall risk and minimize pain report Supine to sit with stand by assist Sit to stand with stand by assist Stand to sit with stand by assist Reclining chair to bed with stand by assist Gait: Facilitated safe and correct performance of level surface ambulation using FWW covering a total distance of about 100 feet + 100 feet in the morning and about 350 feet in the afternoon with just stand by assist. Stairs: Able to tolerate 4 x 4-inch steps using single point cane and a rail on the right with minimal assist with cueing provided for safe technique and AD management. THERA EX: Alternate knee to chest x 10 Supine unilateral LE slide outs x 10 Bridiging x 10 Balance: Static Sitting: Normal Dynamic Sitting: Normal Static Standing: Fair Dynamic Standing: Fair Assessment: Patient is able to perform mobility ADLs safely with anxiety and pain level managed. Patient demonstrating functional mobility decline needing the use of FWW for all mobility ADL performance which has become limited by pain and worsening anxiety over medical her overall medical status. Goals: Goals X1 week 1. Supine-Sit independent 2. Sit-Supine independent 3. Sit-Stand independent 4. Stand-Sit independent with no AD 5. Bed-Chair independent with no AD 6. Chair-Bed independent with no AD 7. Independent gait on level surface with use of no AD for at least 300 feet without report of pain nor dyspnea 8. Independent stair negotiation while holding onto B rails for at least 5 steps without report of pain nor dyspnea 9. Independent with home exercise program 10. Good static and dynamic standing balance/tolerance Plan of Care/Treatment Plan: 1-2x/day, 7 days/week x 1 week. Plan of care has been reviewed with the COMPUTER FORENSIC EXAMINER providing the service under Physical Therapy direction. Initiate Physical Therapy intervention for pain management as needed, strengthening, bed mobility, transfers, gait, stairs, balance training, and use of assistive device. DISCHARGE RECOMMENDATIONS: [] Home with no services [] [X] Home with services. Patient will benefit from home health PT services in order to progress mobility level using least restrictive assistive ambulatory device, assess home safety, identify additional equipment needs, and establish a functional maintenance program that will increase ability of patient to remain at home. [] Home with outpatient PT [] [] SNF for continued rehabilitation [] [] Nursing Home Care [] [] SNF versus LTC based on ability to participate and progress [] TREATMENT CODE/TIME: Session1 -- 20538 x 29 minutes for 2 units (10:06?10:35). Session 2--52990 x 15 minutes for 1 unit, 02429 x 17 minutes for 1 unit ((15:03-15:35).
--- NOTE | 2024-07-27 17:35 | CM.SBPSYCH ---
Date of service: 07/26/24 Time of Service: 15:00 SB Psychosocial/Act. Assmt Hospital Admission Admission Date: 07/26/24 Admission From:: [facility] [place] [place] (admitted 07/20/24) Diagnosis:: arterial occlusion Swing Bed Admission Swing Bed Admit Date:: 07/26/24 Swing Bed Level of Care: Level 1/SNF Social Supports PREVIOUS FUNCTIONAL STATUS/SOCIAL/FAMILY SUPPORTS:: Trina lives alone in an apartment in [place]. She has 4 children; some are close by and others live further away. She also has 13 grandchildren but stated that none of her family can help. Candy stated that she lost all of her friends during the years when she cared for her mother who in 2020. 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 Work History Employment Status:: retired : No 's Spouse: Yes Benefits Financial: Social Security and Medicare Scientologist Active Jehovah'S Witness Member:: Yes Jehovah'S Witness Affliation: [facility] Will Jehovah'S Witness Members or Records Management Coordinator Visit:: No Importance of Claire:: very Advance Directives for Healthcare If no AD, do you want more information:: No Interests Hobbies:: cooking, sewing and heath Music:: Mormon TV/Movies:: CSPAN Reading:: Bible Present Functional Status Physical Abilities:: good except for current issue Cognitive:: good Communication:: good Sensory Systems: wears glasses and upper dentures and OTC hearing aids Medical History General Health:: fair Admission Data Reason for Swing Bed Admission:: rehab Discharge Plan:: Home with home health services for nursing and PT Brain Surgeon: Ailin Alves Date Assessment was completed:: 07/27/24
--- NOTE | 2024-07-27 17:40 | CMSCP_ITS ---
Date of service: 07/26/24 Time of Service: 15:00 Swingbed Plan of Care Activites/Discharge Plan of care: SWING BED PROGRAM ACTIVITIES/DISCHARGE PLAN OF CARE ACTIVITIES PLAN Date:07/26/24 Identified Need:individualized activity plan Intervention/Plan:Candy enjoys listening to Jewish music and shows. She also enjoys reading the Bible. Visits from the field organizer will be requested. Candy would also enjoy music therapy when available. Initials [facility] DISCHARGE PLAN Date:07/26/24 Identified Need: Intervention/Plan: Candy will be discharged home with new home health services for nursing and PT. She will follow up with her community providers and specialists and transport via [facility]. Initials:[facility]
--- NOTE | 2024-07-27 17:40 | CM.SWINGPC ---
Date of service: 07/26/24 Time of Service: 15:00 Swingbed Plan of Care Activites/Discharge Plan of care: SWING BED PROGRAM ACTIVITIES/DISCHARGE PLAN OF CARE ACTIVITIES PLAN Date:07/26/24 Identified Need:individualized activity plan Intervention/Plan:Candy enjoys listening to Oriental Orthodox music and shows. She also enjoys reading the Bible. Visits from the mainspring former brace end will be requested. Candy would also enjoy music therapy when available. Initials [facility] DISCHARGE PLAN Date:07/26/24 Identified Need: Intervention/Plan: Candy will be discharged home with new home health services for nursing and PT. She will follow up with her community providers and specialists and transport via [facility]. Initials:[facility]
[2024-07-27] MEDS: oxyCODONE 5 MG TAB PO (17:51)
--- NOTE | 2024-07-27 18:30 | W.PC.ACHO ---
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 (Last Reviewed 05/21/23 @ 07:29 by Craig Woodruff) History of shoulder surgery Hx of lymph node excision History of cystoscopy History of carpal tunnel release of both wrists History of surgical procedure on mouth Most Recent Vital Signs Temperature 36.6 C 07/27/24 07:49 Temperature Source Temporal Artery Scan 07/27/24 07:49 Pulse 82 07/27/24 07:49 Pulse Rhythm Regular 07/26/24 12:27 Respiratory Rate 20 07/27/24 07:49 Respiratory Effort Normal 07/26/24 12:27 Respiratory Depth Normal 07/26/24 12:27 Respiratory Pattern Normal 07/26/24 12:27 Blood Pressure 130/78 07/27/24 07:49 Pulse Oximetry 95 07/27/24 07:49 Oxygen Delivery Method Room Air 07/27/24 07:49 Oxygen Flow Rate 0 07/27/24 07:49 Pain Level 7 07/27/24 17:51 Comment RN notified 07/26/24 15:17 Allergies animal dander Allergy (Unknown, Verified 07/20/24 13:55) Other (See Comment) congestion latex Allergy (Unknown, Verified 07/20/24 13:55) Edema Penicillins Allergy (Unknown, Verified 07/20/24 13:55) Skin Rash codeine Adverse Reaction (Unknown, Verified 07/20/24 13:55) Nausea Sulfa (Sulfonamide Antibiotics) Adverse Reaction (Unknown, Verified 07/20/24 13:55) Nausea Active Medications Generic Name Dose Route Start Last Admin Trade Name Freq PRN Reason Stop Dose Admin Apixaban 5 mg 07/26/24 20:00 07/27/24 08:45 Apixaban 5 Mg Tab PO 5 mg BID RAMANDO Administration Aspirin 81 mg 07/27/24 08:30 07/27/24 08:44 Aspirin 81 Mg Chew PO 81 mg DAILY ARMANDO Administration Atorvastatin Calcium 80 mg 07/26/24 20:00 07/26/24 19:21 Atorvastatin 40 Mg Tab PO 80 mg QPM ARMANDO Administration Diazepam 2 mg 07/27/24 10:11 07/27/24 11:16 Diazepam 2 Mg Tab PO 2 mg Q6H PRN PRN Administration Docusate Sodium 100 mg 07/26/24 22:00 07/27/24 08:45 Docusate Sodium 100 Mg Cap PO 100 mg BID ARMANDO Administration Furosemide 20 mg 07/27/24 08:30 07/27/24 08:45 Furosemide 20 Mg Tab PO 20 mg DAILY ARMANDO Administration Nicotine 14 mg 07/27/24 11:30 07/27/24 12:17 Nicotine 14 Mg/24 Hr Patch TD 14 mg DAILY ARMANDO Administration Oxycodone HCl 5 mg 07/27/24 18:00 07/27/24 17:51 Oxycodone 5 Mg Tab PO 5 mg Q6H ARMANDO Administration Potassium Chloride 10 meq 07/27/24 08:30 07/27/24 08:46 Potassium Chloride 10 Meq Tabcr PO Not Given DAILY ARMANDO Prednisone 10 mg 07/27/24 08:30 07/27/24 08:45 Prednisone 10 Mg Tab PO 10 mg DAILY ARMANDO Administration Intake and Output - 24 Hour Total 07/25/24 12:48 thru 07/27/24 12:19 Intake Total 250 Output Total 850 Balance -600 Weight 74.096 kg Intake: Oral 250 Output: Urine 850 Other: Urine Color Yellow Urine Appearance Clear Urine Odor Normal Comment voiding into [facility] Falls Risk Assessment History of Falls No History 07/26/24 12:27 Contributing Factors Impairments 07/26/24 12:27 Ambulatory Aids Independent 07/26/24 12:27 Tubes/Lines None 07/26/24 12:27 Gait Evaluation W/no contributing factors 07/26/24 12:27 Cognition No cognitive impairment 07/26/24 12:27 Fall Total Score 13 07/26/24 12:27 Level of Risk Standard/Low Risk 07/26/24 12:27 Problems (Last Reviewed 05/21/23 @ 07:29 by Craig Woodruff) Urothelial cancer (Acute) Arterial occlusion, lower extremity (Acute) v v v v v v v v v Sending and/or Receiving Nurses: Please use comment section below to note any information pertinent to the patient hand-off not included above. Information / Comments: Report received from:[facility] ED given to Vaishali WILLIS 07/27/24 at 1630
[2024-07-27 19:23] VITALS: BP 118/66; PULSE 86; RESP 14; TEMP 36.5; O2SAT 95
[2024-07-27] MEDS: Atorvastatin 40 MG TAB 80 MG PO (19:49)
[2024-07-27] MEDS: HYDROmorphone 2 MG TAB PO (20:01)
[2024-07-28] MEDS: oxyCODONE 5 MG TAB PO ×5 (00:07→23:59)
[2024-07-28] MEDS: predniSONE 10 MG TAB PO (04:23)
[2024-07-28 07:54] VITALS: BP 107/79; PULSE 88; RESP 16; TEMP 36.5; O2SAT 97
[2024-07-28] MEDS: Potassium Chloride 10 MEQ TABCR PO (08:50)
[2024-07-28] MEDS: Furosemide 20 MG TAB PO (08:50)
[2024-07-28] MEDS: Aspirin 81 MG CHEW PO (08:50)
[2024-07-28] MEDS: Docusate Sodium 100 MG CAP PO ×2 (08:51→20:55)
[2024-07-28] MEDS: Nicotine 14 MG/24 HR PATCH TD (08:51)
[2024-07-28] MEDS: Apixaban 5 MG TAB PO ×2 (08:51→20:55)
--- NOTE | 2024-07-28 10:50 | PT.INTREAT ---
PT Notes Visit Reasons: Generalized weakness Physical Therapy Inpatient Treatment Note Date: 07/28/2024 Precautions: Fall. Standard. Activity as tolerated. Subjective: Significant pain in the L foot due to an arthritic flare. Unsure of how much she could do this morning. Objective: General Observation: Resting in bed. Post op wound to L medial arm and axillary area intact and dry. Mental Status: Alert and oriented as to person, place, time, and purpose. Able to pay attention, focus, and respond appropriately. Pain: 7-8/10 in the L foot due to an arthirtic flare Vital Signs: Closely monitored by nursing staff Bed Mobility/Transfers: Minimal cueing provided for use of B hands as needed for support, movement sequence, AD management, and posture to reduce fall risk and minimize pain report Supine to sit with stand by assist Sit to stand with stand by assist Stand to sit with stand by assist Reclining chair to bed with stand by assist Gait: Facilitated safe and correct performance of level surface ambulation using FWW covering a total distance of about 15 feet in the morning with report of pain in L foot due to an arthritic flare. THERA EX: Alternate knee to chest x 10 Supine unilateral LE slide outs x 10 Bridiging x 10 Balance: Static Sitting: Normal Dynamic Sitting: Normal Static Standing: Fair Dynamic Standing: Fair Assessment: Patient is able to perform mobility ADLs safely with anxiety and pain level managed. Patient demonstrating functional mobility decline needing the use of FWW for all mobility ADL performance which has become limited by pain and worsening anxiety over medical her overall medical status. Goals: Goals X1 week 1. Supine-Sit independent 2. Sit-Supine independent 3. Sit-Stand independent 4. Stand-Sit independent with no AD 5. Bed-Chair independent with no AD 6. Chair-Bed independent with no AD 7. Independent gait on level surface with use of no AD for at least 300 feet without report of pain nor dyspnea 8. Independent stair negotiation while holding onto B rails for at least 5 steps without report of pain nor dyspnea 9. Independent with home exercise program 10. Good static and dynamic standing balance/tolerance Plan of Care/Treatment Plan: 1-2x/day, 7 days/week x 1 week. Plan of care has been reviewed with the REVERSE UNIT OPERATOR providing the service under Physical Therapy direction. Initiate Physical Therapy intervention for pain management as needed, strengthening, bed mobility, transfers, gait, stairs, balance training, and use of assistive device. DISCHARGE RECOMMENDATIONS: [] Home with no services [] [X] Home with services. Patient will benefit from home health PT services in order to progress mobility level using least restrictive assistive ambulatory device, assess home safety, identify additional equipment needs, and establish a functional maintenance program that will increase ability of patient to remain at home. [] Home with outpatient PT [] [] SNF for continued rehabilitation [] [] Econometrics Professor Care [] [] SNF versus LTC based on ability to participate and progress [] TREATMENT CODE/TIME: 76338 x 15 minutes for 1 unit (10:50?11:05).
[2024-07-28] MEDS: diazePAM 2 MG TAB PO ×3 (11:29→23:16)
[2024-07-28] MEDS: HYDROmorphone 2 MG TAB PO ×2 (13:21→20:55)
--- NOTE | 2024-07-28 13:52 | CHAPLAIN ---
I met Trina in the ED last week when she was being transferred to [facility] by [facility] for a blood clot in her groin and numbness in her left foot. She had been discharged from [facility] the day before this happened. In the ED while waiting for [facility]EN[facility], [place] She lives in [facility]. She's estranged from three children, but a fourth was on his way to visit here but his truck broke down in [place]. She is also in touch with her oldest grandson in [place]. Trina is Southern Jew, but has not found a Jew holiness in the [facility] that she likes. She said she believes that Swapnil will take care of her, he always has, so there is no need to worry. She is not part of a selin community here, and says anytime two people are talking about the Lord, is holiness. She is expecting to be discharged later today.
--- NOTE | 2024-07-28 15:37 | PT.INTREAT ---
PT Notes Visit Reasons: Generalized weakness Date: 07/28/2024 PRECAUTIONS: Fall. Standard. Activity as tolerated. SUBJECTIVE: PT in bed when approached for therapy this afternoon, pt reports her pain is not managed by the hydrocortisone, and refused OOB activity, agreed to bed level exercises. ? PAIN: left foot, left arm right shoulder pain feels like stepping on glass VITALS: Monitored by nursing Therapeutic procedures [id number] 20mins: Instruction in therapeutic exercises to develop strength and endurance, range of motion and flexibility. HEP instruction: Provided skilled instruction in proper exercise performance: Provided skilled manual cues to facilitate proper muscle recruitment and/or movement pattern: Supine knee to chest [id number] mirrored Supine SLR [id number] Supine clamshells [id number] Supine hip fall outs [id number] Supine bridge [id number] Upward movement in bed Side to side movement in bed PLAN: Continue with balance training, global strengthening and general conditioning for improved safety, mobility and activity tolerance until pt is ready for DC. TREATMENT CODE/TIME: [id number] 20mins (3:10-3:30pm) ?
[2024-07-28 16:07] VITALS: BP 136/72; PULSE 95; RESP 16; TEMP 36.6; O2SAT 96
[2024-07-28 19:37] VITALS: BP 114/73; PULSE 89; RESP 18; TEMP 36.2; O2SAT 97
[2024-07-28] MEDS: Atorvastatin 40 MG TAB 80 MG PO (20:54)
[2024-07-29 00:30] VITALS: PULSE 105; RESP 16; TEMP 36.8; O2SAT 98
[2024-07-29] MEDS: Albuterol HFA 8 GM 60 PUFF INH IH (01:16)
[2024-07-29] MEDS: HYDROmorphone 2 MG TAB PO (01:18)
--- NOTE | 2024-07-29 01:18 | CE_ITS ---
Date of service: 07/29/24 Time of Service: 00:45 Event Note: I was called to the patient's bedside with the attending nurse concerned about escalating left leg pain from the patient's baseline since admission to swing bed level 1 on 07/26/2024. The patient is status post thromboembolectomy and revascularization of her left lower extremity with an acute ischemic limb on 07/20/2024 at which time the patient was transferred from this facility's ED to [facility] ED and then vascular surgery with intervention. Patient was transferred back to this facility stable plan for eventual discharge to short-term rehab. At about 3 PM today prior to transfer, the patient began to have increasing left lower extremity pain with neuropathic pain previously and also rheumatoid arthritis type pain chronically. This left lower extremity foot pain worsened over the evening and I evaluated patient at about midnight being called by the attending nurse because of cyanosis and coolness to the foot with increased pain relieved by the patient hanging her leg over the edge of the bed. The patient did have blanching of her foot when the knee was bent and Doppler pulses in the left foot were negligible when previously being auscultated during the day prior to discharge. I did call [facility] transfer center and spoke to vascular surgery who wanted the patient initiated on heparin infusion despite being on Eliquis with Eliquis to be discontinued. Aspirin will be continued. She had labs for baseline studies and was arranged for transfer to [facility] ED for further evaluation prior to vascular surgery seeing patient for possible revascularization procedure to be repeated. This was an acute and emergent ischemic limb clinically with escalating symptoms. The patient is a full code. Assessment/plan: Acute ischemic limb left lower extremity status post previous revascularization within the last week. Time Spent with Patient Time spent in critical care(minutes): 40 Time Spent Included: Coordination of care, Chart review, Documenting critically ill care, Time at immediate bedside and Discussing critically ill care with other medical staff
[2024-07-29 01:20] VITALS: O2SAT 98
[2024-07-29 01:20] LABS: HCT 36.1 % (36.0-46.0); HGB 10.7 g/dL (11.2-15.7); MCH 22.3 pg (27.0-33.0); MCHC 29.6 % (32.0-36.0); MCV 75 fL (80-95); MPV 8.9 fL (8.0-11.0); Platelet Count 255 10^3/uL (130-400); RDW 18.2 % (11.7-14.6); RDW-SD 48.6 fL; WBC 11.94 10^3/uL (4.4-10.8)
--- NOTE | 2024-07-29 01:26 | W.PM.DS.N ---
Date of service: 07/29/24 Time of Service: 01:28 DS: Diagnosis Discharge Diagnosis (1) Arterial occlusion, lower extremity: Start date: 07/29/24 Status: Acute Asessment and Plan: This is a 69-year-old female patient who had acute ischemic left lower extremity 07/20/2024 prompting transfer from this facility's ED to [facility] vascular surgery where she had thromboembolectomy and revascularization of the left lower extremity. She was transferred back to this facility 07/26/2024 and had adequate pulses by Doppler of the left lower extremity and slow rehabilitation. In the afternoon prior to transfer back to the ED at [facility], the patient was having gradual and then escalating limb pain with blanching and cyanosis as well as coolness to touch. Her limb pain was relieved by hanging and her leg over the side of the bed. I did call [facility] transfer center and the patient has been accepted to [facility] ED with Erick Abad as excepting attending. Vascular surgery advised to initiate heparin infusion the patient already on Eliquis and continue aspirin. Vascular surgery will obtain patient after ED evaluation at [facility]. (2) Hyperlipidemia: Asessment and Plan: Continue high-dose atorvastatin. (3) COPD (chronic obstructive pulmonary disease): Asessment and Plan: Continue respiratory treatments. (4) Urothelial cancer: Status: Chronic Asessment and Plan: Status post procedures with follow-up oncology. (5) Anxiety: Asessment and Plan: Continue anxiolytics as needed. Discharge Plan Disposition Patient Disposition: Transfer-Acute Inpatient Care Specific Acute In Facility: [facility] Condition: Deteriorating Discharge Details Reason For Visit: lower extremity ischemia Admit Date/Time: 07/26/24 11:49 Admit Provider: Diogo Pope Attending Provider: Diogo Pope Primary Care Provider: Adela Madrid Hospital Course Hospital Course: This is a 69-year-old lady admitted for short-term rehabilitation status post thromboembolectomy and revascularization of left lower extremity on Eliquis which was a new treatment and aspirin chronically. See H&P upon admission and discharge summary from [facility]. She was rehabilitating well and was planned to be discharged home the day prior to transfer to [facility] with her acute changes in status. She does have known severe peripheral vascular disease. The evening prior to transfer back to [facility] to see vascular surgery, the patient began to have ischemic pain in the left lower extremity which escalated and became severe with Doppler pulses markedly decreased. She was also having blanching with cyanosis over her left foot and pain relieved by hanging in her leg over the edge of the bed. Labs were ordered and heparin infusion initiated per vascular surgery's recommendations with patient transferred to [facility] ED for further studies and vascular surgery consultation. Patient is a full code. Home Meds and New Rx's Prescriptions: No Action acetaminophen [Tylenol Extra Strength] 500 mg Tablet 1,000 mg PO BID PRN naloxone [Narcan] 4 mg/actuation [place],Non-Aerosol 1 spray INTRANASAL Q2M Patient Comments: prn use- never used potassium chloride 10 mEq tablet extended release PO Patient Comments: TAKE ONE TABLET BY MOUTH TWICE A DAY diazepam 2 mg tablet Patient Comments: TAKE 1-2 TABLETS BY MOUTH EVERY 6 HOURS NEEDED FOR PANIC ATTACK. 30 DAY SUPPLY pantoprazole 40 mg tablet,delayed release (DR/EC) PO Patient Comments: TAKE ONE TABLET BY MOUTH EVERY DAY albuterol sulfate 90 mcg/actuation HFA aerosol inhaler INHALATION Patient Comments: INHALE TWO PUFFS BY MOUTH EVERY 4 TO 6 HOURS NEEDED FOR SHORTNESS OF BREATH nicotine 14 mg/24 hr patch 24 hour 1 patch transdermal DAILY Patient Comments: APPLY ONE PATCH TO THE SKIN EVERY DAY furosemide [Lasix] 20 mg tablet 20 mg PO DAILY prednisone 5 mg tablet 10 mg PO DAILY Patient Comments: TAKE ONE TO TWO TABLETS BY MOUTH EVERY MORNING UNITL MOLD MAKER PLASTIC MOLDS 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 TAKE SMALLEST AMOUNT THAT HOLDS OFF FLA oxycodone 5 mg tablet 5 mg PO Q6H Patient Comments: TAKE ONE TABLET BY MOUTH FOUR TIMES A DAY Discharge Instructions Activity:: Bedrest with bedside comm Equipment/Supplies:: No Equipment Needed Diet:: Heart healthy, low-fat DS: Summary Time Spent with Patient providing and/or coordinating discharge services: Greater than 30 minutes Status at Discharge Functional status at discharge: bed bound Overall status at discharge: other (Acute ischemic left lower extremity with escalating pain.) Mental Status: mental status grossly normal Speech and Movement: speech and movement normal Mood: anxious mood Affect: labile affect Quality:SDOH Health Related Social Needs: No Data to Display Exam Narrative Exam Narrative: Patient had clean cutdown incision left arm where she had previous vascular access for revascularization of the left lower extremity. Patient is moderately obese with warm normal color and skin except over her left foot where she has paleness with cool to touch skin over the dorsal distal foot and toes as well as cyanosis over the toes. Dorsalis pedis and posterior tibialis pulse was not found by Doppler with occasional monophasic ration auscultated which was markedly different from Doppler pulses found earlier in the day on 07/28/2024. Lungs were clear heart had a regular rate and rhythm. All of her extremities were otherwise warm to touch. Neurological exam was intact except for hyperesthesia over left lower extremity which was chronic.. Psych Mental Status: mental status grossly normal Speech and Movement: speech and movement normal Mood: anxious mood Affect: labile affect DS: Data Vitals/I&O Vitals and I&O: Vital Signs Temperature 36.2 C L 07/28/24 19:37 Temperature Source Tympanic 07/28/24 19:37 Pulse 89 07/28/24 19:37 Pulse Rhythm Regular 07/26/24 12:27 Respiratory Rate 18 07/28/24 19:37 Respiratory Effort Normal 07/26/24 12:27 Respiratory Depth Normal 07/26/24 12:27 Respiratory Pattern Normal 07/26/24 12:27 Blood Pressure 114/73 07/28/24 19:37 Pulse Oximetry 97 07/28/24 19:37 Oxygen Delivery Method Room Air 07/28/24 19:37 Oxygen Flow Rate 0 07/28/24 19:37 Pain Level 10 07/29/24 01:18 Comment RN notified 07/28/24 16:07 Intake & Output 07/28/24 07/28/24 07/29/24 11:59 23:59 11:59 Intake Total 240 / 240 Output Total 200 / 200 Balance 40 / 40 Weight 76.9 kg Intake: Oral 240 / 240 Output: Urine 200 / 200 Other: Urine Color Yellow Pale Urine Appearance Clear Clear Urine Odor None None Comment per patient reort Stool Size Moderate Small Stool Characteristics Soft Formed Formed Hard Data Completed and Pending Labs on day of discharge: Labs from last 24 hours 07/29/24 01:09 WBC 11.94 H RBC 4.80 Hgb 10.7 L Hct 36.1 MCV 75 L MCH 22.3 L MCHC 29.6 L RDW 18.2 H Plt Count 255 MPV 8.9 PT Pending INR Pending APTT Pending Sodium Pending Potassium Pending Chloride Pending Carbon Dioxide Pending Anion Gap Pending BUN Pending Creatinine Pending Est GFR (CKD-EPI 2020) Pending Glucose Pending Calcium Pending Total Bilirubin Pending AST Pending ALT Pending Alkaline Phosphatase Pending Total Protein Pending Albumin Pending PFSH All Active Problems UTI (urinary tract infection) (Acute) Urothelial cancer (Chronic) Arterial occlusion, lower extremity (Acute) Medical History Abnormal electrocardiogram had stress test on 04/28 @ [facility] per pt. 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 Surgical History History of shoulder surgery Hx of lymph node excision History of cystoscopy History of carpal tunnel release of both wrists History of surgical procedure on mouth Social History Smoking/Tobacco Use Status: Former Tobacco Use Quit Date: 05/07/23 Smoking risk assessment performed?: Yes Alcohol Intake: never Drug use: Never Substance use type: does not use Household members: family Housing: apartment Number of Children: 4 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
[2024-07-29 01:36] LABS: INR 1.2 (0.9-1.1); PTT Activated 26.7 sec (23.6-32.8); Prothrombin Time 12.2 sec (9.1-11.1)
[2024-07-29 01:37] LABS: ALT 24 U/L (14-59); AST 10 U/L (15-37); Alkaline Phosphatase 110 U/L (46-116); Anion Gap 11.5 mmol/L (3-11); BUN 24 mg/dL (7-18); Bilirubin, Total 0.38 mg/dL (0.2-1.0); CO2 27.5 mmol/L (21.0-32.0); CREATININE 1.1 mg/dL (0.55-1.02); Calcium 9.1 mg/dL (8.5-10.1); Chloride 100 mmol/L (98-107); Estimated GFR 54.06 (mL/min/1.73m2); Glucose 135 mg/dL (74-106); Potassium 3.9 mmol/L (3.5-5.1); Sodium 139 mmol/L (136-145); Total Protein 7.7 g/dL (6.4-8.2)
[2024-07-29] MEDS: Heparin in 0.45% NaCl 25,000 UNIT/250 ML BAG 13 UNIT IVINF (01:41)
[2024-07-29 01:56] VITALS: BP 123/67; PULSE 105; RESP 16; TEMP 36.8; O2SAT 98
== END 2024-07-29 01:49 | disposition short-term general hospital (02) | DRG 949 ==
PROVIDERS: Family Medicine; Admitting Provider Family Medicine; PCP Physician Assistant Medical; Visit Provider Family Medicine
DX: Z48.812 Encounter for surgical aftercare following surgery on the circulatory system (principal); C34.11 Malignant neoplasm of upper lobe, right bronchus or lung; C79.89 Secondary malignant neoplasm of other specified sites; C68.0 Malignant neoplasm of urethra; I70.222 Atherosclerosis of native arteries of extremities with rest pain, left leg; Z95.828 Presence of other vascular implants and grafts; E78.5 Hyperlipidemia, unspecified; J44.9 Chronic obstructive pulmonary disease, unspecified; F41.9 Anxiety disorder, unspecified; E66.9 Obesity, unspecified; C52 Malignant neoplasm of vagina; R73.03 Prediabetes; K64.4 Residual hemorrhoidal skin tags; K21.9 Gastro-esophageal reflux disease without esophagitis; Z87.891 Personal history of nicotine dependence
CPT/HCPCS: 00123; 80053; 85027; 94640; 97110; 97162; 97530; 99306; 99316; 85610; 85730; 94664; 99223; 99239; 99291; J1644; J7512